=== PATIENT | female | born 1975 | race Caucasian/White ===

== ENCOUNTER → 2016-10-14 | Outpatient (CLI) | payer OTHER ==
--- NOTE | 2016-10-14 12:55 | MM ---
Reason for exam: additional evaluation requested from prior study. Last mammogram was performed 2 years and 3 months ago. Physical Findings: Nurse did not find any significant physical abnormalities on exam. MG Diagnostic Mammo w CAD SALONI Bilateral CC and MLO view(s) were taken. ML, CC with magnification, and ML with magnification view(s) were taken of the right breast. Prior study comparison: July 12, 2014, bilateral MG diagnostic mammo w CAD SALONI. There are scattered fibroglandular densities. Finding: There are indeterminate round, heterogeneous, grouped/clustered calcifications in the upper outer quadrant, middle position of the right breast. There is a chronic nodularity in the left breast. These results were verbally communicated with the patient and result sheet given to the patient on 10/14/16. ASSESSMENT: Suspicious, BI-RAD 4 RECOMMENDATION: Stereotactic core biopsy of the right breast. Called Dr. Zee with mammographic findings and has scheduled an appointment for the patient for 10/28/16 at 3:[address] Galvez. PRELIMINARY REPORT CALLED AND FAXED TO DR. GALVEZ ON 10/14/16 AT 300/TMP.
== END ==
LOC: RADMAMWWP 10:37
PROVIDERS: ATTEND Family Medicine
DX: R92.8 Other abnormal and inconclusive findings on diagnostic imaging of breast (principal)

== ENCOUNTER → 2017-01-23 | Outpatient (CLI) | payer OTHER ==
[2017-01-23 16:24] LABS: Blood Urea Nitrogen 19 mg/dL (7-17); Non-African American GFR(MDRD) 53 (>60 ml/min/1.73 sqM)
--- NOTE | 2017-01-23 18:50 | CT ---
EXAMINATION TYPE: CT abdomen pelvis w con DATE OF EXAM: 01/23/2017 COMPARISON: NONE HISTORY: Lump to mid abdominal area. Hx of abdominal aortic bypass. CT DLP: 2263.2 mGycm Automated exposure control for dose reduction was used. TECHNIQUE: Helical acquisition of images was performed from the lung bases through the pelvis. CONTRAST: Performed with Oral Contrast and with IV Contrast, patient injected with 100 mL of Visipaque 320. FINDINGS: Lung bases are clear. There is no pleural effusion. There is probably a hiatal hernia. There is no evidence of a splenic mass. Liver appears normal. Bile ducts are not dilated. Pancreas ap pears normal. Gallbladder is contracted. There is no adrenal mass. Kidneys show satisfactory contrast opacification. Ureters are not dilated. There is cortical thinning in the lower pole of the right kidney. There is a ventral hernia that cont ains transverse colon. This is above the umbilicus. I do not see evidence of a bowel obstruction. The re is no ascites. There is no retroperitoneal adenopathy. Abdominal aorta is atheromatous. There is a orto iliac bypass graft noted. Bladder distends smoothly. I see no pelvic mass. There is no ascites. Appendix is not seen. There is no sign of appendicitis. Lumbar spine is intact. I see no focal bone d estruction. IMPRESSION: THERE IS AN INCARCERATED VENTRAL HERNIA THAT CONTAINS TRANSVERSE COLON. THE OPENING IS 5 CM. THERE IS NO EVIDENCE OF A BOWEL OBSTRUCTION. MILD SUBCUTANEOUS EDEMA OVER THE LOWER LUMBAR SPINE. CORTICAL TH INNING IN THE LOWER POLE RIGHT KIDNEY CONSISTENT WITH CHRONIC PYELONEPHRITIS. ATHEROSCLEROTIC VASCULA R DISEASE. THERE IS PROBABLY A SMALL HIATAL HERNIA. NO SIGN OF ACUTE ABDOMEN AND PELVIS.
== END | disposition home or self-care (01) ==
LOC: RADCTMAIN 15:48
PROVIDERS: ATTEND Surgery
DX: K43.6 Other and unspecified ventral hernia with obstruction, without gangrene (principal); I70.90 Unspecified atherosclerosis
CPT/HCPCS: 82565; 84520; 74177; 36415; Q9967

== ENCOUNTER → 2017-01-28 | Day surgery (SDC) | payer OTHER ==
[2017-01-28 07:47] VITALS: RESP 18; BMI 42.2
[2017-01-28 08:43] LABS: Prothrombin Time 10.1 sec (9.0-12.0)
[2017-01-28 09:28] VITALS: BP 135/71; PULSE 76; TEMP 76
--- NOTE | 2017-01-28 09:50 | MM ---
Stereotactic Mammotome core biopsy right breast. HISTORY: Right breast microcalcifications The right in question within the right breast were targeted by the undersigned. Procedure was perfor med by the undersigned. Informed consent was obtained and all of the patients questions were answered . The standard sterile technique was utilized and appropriate local anesthesia was obtained with 1% licocaine. Mammotome probe was advanced and multiple core samples were obtained and sent to patholog y for interpretation. Microclip marker was deployed at the site of biopsy. Post procedural mammogra m demonstrates appropriate deployment of radiopaque clip marker. The patient tolerated the procedure well and left the department in stable condition. Pathology results are pending. IMPRESSION: Successful stereotactic core biopsy right breast with pathology results pending.
== END ==
LOC: RADMAMWWP 07:07
PROVIDERS: ATTEND Surgery
DX: N60.31 Fibrosclerosis of right breast (principal); R92.8 Other abnormal and inconclusive findings on diagnostic imaging of breast; N60.01 Solitary cyst of right breast; N60.81 Other benign mammary dysplasias of right breast; N60.21 Fibroadenosis of right breast; N64.89 Other specified disorders of breast; Z88.1 Allergy status to other antibiotic agents
CPT/HCPCS: 88305; 85610; 85730; 19081; A4648; J2001

== ENCOUNTER → 2017-03-05 | Outpatient (CLI) | payer OTHER ==
[2017-03-05 14:01] LABS: Basophils % (A) 0 %; CH 26.6; CHCM 31.9; Eosinophils # (A) 0.2 k/uL (0-0.7); Eosinophils % (A) 2 %; HGB 12.6 gm/dL (11.4-16.0); Luc % (Auto) 2; Lymphocytes # (A) 1.9 k/uL (1.0-4.8); Lymphocytes % (A) 20 %; MCH 27.8 pg (25.0-35.0); MCHC 33.2 g/dL (31.0-37.0); MCV 83.8 fL (80.0-100.0); Mean Platelet Volume 7.1; Monocytes # (A) 0.5 k/uL (0-1.0); Monocytes % (A) 5 %; Neutrophils # (A) 6.8 k/uL (1.3-7.7); Neutrophils % (A) 71 %; RBC 4.54 m/uL (3.80-5.40); RDW 14.6 % (11.5-15.5); WBC 9.7 k/uL (3.8-10.6); WBC (Perox) 10.07
[2017-03-05 14:21] LABS: Blood Urea Nitrogen 13 mg/dL (7-17); Non-African American GFR(MDRD) >60 (>60 ml/min/1.73 sqM); Potassium 4.5 mmol/L (3.5-5.1)
== END | disposition home or self-care (01) ==
LOC: LABPAT 13:06
PROVIDERS: ATTEND Surgery
DX: Z01.812 Encounter for preprocedural laboratory examination (principal)
CPT/HCPCS: 82565; 84132; 84520; 85025

== ENCOUNTER 2017-03-25 08:52 | Day surgery (SDC) | payer OTHER ==
[2017-03-05 10:54] VITALS: BMI 43.9
[~2017-03-25 08:52] MED LIST: DEXAMETHASONE SOD PHOSPHATE 10 MG/ML 1 ML VIAL IV ONE; HEPARIN SODIUM,PORCINE 5,000 UNIT/ML 1 ML VIAL SQ ONE; HYDROmorphone 1 MG/ML 1 ML SYRINGE IVP PRN; LACTATED RINGERS 1,000 ML IV SCH; ONDANSETRON 4 MG/2 ML VIAL IVP ONE; ceFAZolin 2 GM in SODIUM CHLORIDE 0.9% 100 ML IVPB ONE; fentaNYL (PF) 50 MCG/ML 2 ML AMP IV PRN
[2017-03-25 09:41] LABS: Glucose,Whole Blood 228 mg/dL (75-99)
[2017-03-25] MEDS ORDERED: MIDAZOLAM 2 MG/2 ML VIAL IVP ONE (10:00)
[2017-03-25] MEDS ORDERED: LIDOCAINE 1% 20 ML VIAL (10MG/ML) FOR IV START INTRADERMA ONE (10:00)
[2017-03-25] MEDS ORDERED: SCOPOLAMINE 1.5MG/72HR PATCH TRANSDERM ONE (10:00)
[2017-03-25] MEDS ORDERED: INSULIN REGULAR 100 UNIT/ML VIAL SQ ONE (10:13)
--- NOTE | 2017-03-25 10:34 | P.GSHP ---
History of Present Illness H&P Date: 03/25/17 Chief Complaint: Incisional hernia This is a 41-year-old female who's developed an incarcerated incisional hernia related to previous aortobifem surgery. She's developed a tender mass in her mid incision. Past Medical History Past Medical History: Diabetes Mellitus, Deep Vein Thrombosis (DVT), Hyperlipidemia, Hypertension, Thyroid Disorder Additional Past Medical History / Comment(s): DM, type 1, Carpal Tunnel, Frozen shoulder L side. Currently has Bronchitis and is taking Amoxicillin. History of Any Multi-Drug Resistant Organisms: None Reported Past Surgical History: Section, Orthopedic Surgery Additional Past Surgical History / Comment(s): Aortic Abdominal Bypass-12/2015, L Carpal Tunnel, R Breast bx. States she had a clot in her lower ext. post-op from the Aortic-Abd. Bypass surgery. Past Anesthesia/Blood Transfusion Reactions: Family History of Problems w/ Anesthesia Additional Past Anesthesia/Blood Transfusion Reaction / Comment(s): States her brother stopped breathing 4 years ago at the dentist. States not sure what happened. Smoking Status: Former smoker - Past Family History Mother Family Medical History: Cancer Additional Family Medical History / Comment(s): Kidney Brother(s) Family Medical History: Cancer Additional Family Medical History / Comment(s): Esophageal Medications and Allergies Home Medications Medication Instructions Recorded Confirmed Type Aspirin EC [Ecotrin Low Dose] 81 mg PO DAILY 09/24/15 03/16/17 History Insulin NPH Hum/Reg Insulin Hm 63 units SQ BID 09/24/15 03/16/17 History [NovoLIN 70-30 100 UNIT/ML VIAL] Insulin Regular, Human [NovoLIN R] See Protocol SQ ACHS 09/24/15 03/16/17 History Levothyroxine Sodium [Synthroid] 150 mcg PO DAILY 09/24/15 03/16/17 History Lisinopril [Prinivil] 10 mg PO DAILY 09/24/15 03/16/17 History ALPRAZolam [Xanax] 0.25 mg PO DAILY PRN 01/16/17 03/16/17 History Atorvastatin [Lipitor] 40 mg PO DAILY 01/16/17 03/16/17 History Clopidogrel [Plavix] 75 tab PO DAILY 01/16/17 03/16/17 History Hydrochlorothiazide 25 mg PO DAILY 01/16/17 03/16/17 History Metoprolol Succinate [Toprol XL] 25 mg PO HS 01/28/17 03/16/17 History Gabapentin [Neurontin] 100 mg PO TID PRN 03/05/17 03/16/17 History Amoxicillin 875 mg PO Q12HR 03/16/17 03/16/17 History Allergies Allergy/AdvReac Type Severity Reaction Status Date / Time doxycycline Allergy Nausea & Verified 03/25/17 09:16 Vomiting erythromycin base Allergy Nausea & Verified 03/25/17 09:16 Vomiting Surgical - Exam Vital Signs Temp Pulse Resp BP Pulse Ox 97.7 F 92 16 112/61 97 03/25/17 10:00 03/25/17 10:00 03/25/17 10:00 03/25/17 10:00 03/25/17 10:00 - General well developed, no distress - Eyes PERRL - ENT normal pinna - Neck no masses - Respiratory normal expansion - Cardiovascular Rhythm: regular - Abdomen Abdomen: soft, non tender Hernia: incisional (Incarcerated incisional hernia approximately 5 cm diameter) Results - Labs Abnormal Lab Results - Last 24 Hours (Table) 03/25/17 Range/Units 09:37 POC Glucose (mg/dL) 228 H (75-99) mg/dL Assessment and Plan Plan: Incarcerated incisional hernia. We'll perform laparoscopic robotic assistance repair. Patient is aware the risk of possible significant adhesions and conversion to open procedure.
[2017-03-25] MEDS ORDERED: BUPIVACAINE-EPI 0.5%-1:200,000 10 ML VIAL SQ ONE (10:45)
[2017-03-25] MEDS ORDERED: MIDAZOLAM 2 MG/2 ML VIAL ONE (10:48)
[2017-03-25] MEDS ORDERED: GLYCOPYRROLATE 0.2 MG/ML 2 ML VIAL ONE (10:48)
[2017-03-25] MEDS ORDERED: KETOROLAC 30 MG/ML 1 ML VIAL ONE (10:48)
[2017-03-25] MEDS ORDERED: PROPOFOL 10 MG/ML 20 ML VIAL IV ONE (10:48)
[2017-03-25] MEDS ORDERED: ROCURONIUM BROMIDE 10 MG/ML 10 ML VIAL IV ONE (10:48)
[2017-03-25] MEDS ORDERED: SUCCINYLCHOLINE CHLORIDE 100 MG/5 ML SYR IV ONE (10:48)
[2017-03-25] MEDS ORDERED: HYDROmorphone (PF) 1 MG/ML ONE (10:48)
[2017-03-25] MEDS ORDERED: fentaNYL (PF) 50 MCG/ML 2 ML AMP ONE (10:48)
[2017-03-25] MEDS ORDERED: NEOSTIGMINE 1 MG/ML 10 ML VIAL ONE (10:48)
[2017-03-25] MEDS ORDERED: LIDOCAINE 1% INJ 10MG/ML (20 ML MDV) ONE (10:48)
[2017-03-25] MEDS ORDERED: ONDANSETRON 4 MG/2 ML VIAL IVP PRN (11:57)
[2017-03-25] MEDS ORDERED: NALOXONE 0.4 MG/ML 1 ML VIAL IV PRN (11:57)
[2017-03-25] MEDS ORDERED: HYDROmorphone 1 MG/ML 1 ML SYRINGE IVP PRN (11:57)
[2017-03-25] MEDS ORDERED: LACTATED RINGERS 1,000 ML IV ONE ×2 (12:02→15:30)
[2017-03-25 12:34] LABS: Glucose,Whole Blood 217 mg/dL (75-99)
--- NOTE | 2017-03-25 14:22 | P.OP ---
Date of Procedure: 03/25/17 Preoperative Diagnosis: Incisional incarcerated hernia Postoperative Diagnosis: Incarcerated incisional hernia Adhesions Procedure(s) Performed: Diagnostic laparoscopy Open repair of incarcerated incisional hernia with mesh Anesthesia: NURIA Surgeon: Ryder Galvez Estimated Blood Loss (ml): 20 Pathology: other (Hernia sac) Condition: stable Disposition: PACU Description of Procedure: The patient's placed the operative table in supine position. She received general anesthesia. Her abdomen was prepped and draped usual sterile fashion. The pelvic cavity was entered in the left upper quadrant. Using a 5 mm optical trocar under direct visualization panel cavity was entered and then the abdomen was insufflated. After adequate insufflation the laparoscope was placed back the pleural cavity. There were extensive adhesions located along the midline. There is multiple loops of bowel stuck up against the midline. It was decided to convert the procedure to proceed this point. The trochars withdrawn. The skin was incised in midline. And then the subcutaneous tissue divided using left cautery. The hernia sac was found. The hernia sac wasn't opened. The incarcerated bowel was placed back peritoneal cavity. The hernia sac was then excised using left cautery. The fascial defect was closed using. 0 Ethibond suture. Next a 10 x 12" Prolene mesh was cut to appropriate size and this was secured to the fascia using the secure strand tacker. A MORRO drains placed over top of the mesh and brought out through separate stab incision. Elvia's fascia closed with 0 Vicryl. Skin was closed with kris. The patient was then sent to recovery room in stable condition.
[2017-03-25] MEDS ORDERED: SODIUM CHLORIDE 0.9% 500 ML IV ONE (14:49)
[2017-03-25] MEDS: KETOROLAC 30 MG/ML 1 ML VIAL IVP SCH ×2 (15:29→18:32)
[2017-03-25 15:55] LABS: Glucose,Whole Blood 227 mg/dL (75-99)
[2017-03-25 16:01] LABS: CH 27.1; CHCM 32.2; HCT 33.6 % (34.0-46.0); HDW 2.58; HGB 10.7 gm/dL (11.4-16.0); MCH 26.8 pg (25.0-35.0); MCHC 31.8 g/dL (31.0-37.0); MCV 84.5 fL (80.0-100.0); Mean Platelet Volume 7.3; RBC 3.98 m/uL (3.80-5.40); RDW 15.6 % (11.5-15.5); WBC 13.5 k/uL (3.8-10.6)
[2017-03-25] MEDS ORDERED: ALPRAZolam 0.25 MG TAB PO PRN (16:20)
[2017-03-25] MEDS ORDERED: GABAPENTIN 100 MG CAP PO PRN (16:20)
[2017-03-25] MEDS: LACTATED RINGERS 1,000 ML IV ONE (16:34)
[2017-03-25] MEDS: INSULIN LISPRO (humaLOG) 300 UNIT/3 ML VIAL SQ SCH ×2 (17:44→21:51)
[2017-03-25 17:52] LABS: Glucose,Whole Blood 260 mg/dL (75-99)
[2017-03-25 21:48] LABS: Glucose,Whole Blood 202 mg/dL (75-99)
[2017-03-25] MEDS: METOPROLOL SUCCINATE (ER) 25 MG TAB.ER.24H PO SCH (21:49)
[2017-03-25] MEDS: DOCUSATE 100 MG CAP PO SCH (21:55)
[2017-03-25] MEDS: HYDROcodone/APAP 5-325MG 1 EACH TAB PO PRN (22:03)
[2017-03-26] MEDS: KETOROLAC 30 MG/ML 1 ML VIAL IVP SCH ×4 (00:20→17:49)
[2017-03-26] MEDS: LACTATED RINGERS 1,000 ML IV ONE (00:33)
[2017-03-26] MEDS: LEVOTHYROXINE 75 MCG TAB PO SCH (06:34)
[2017-03-26 07:16] LABS: Basophils # (A) 0.1 k/uL (0-0.2); Basophils % (A) 1 %; CHCM 31.9; Eosinophils # (A) 0.2 k/uL (0-0.7); Eosinophils % (A) 2 %; HCT 36.3 % (34.0-46.0); HDW 2.54; HGB 11.6 gm/dL (11.4-16.0); Luc # (Auto) 0.09; Luc % (Auto) 1; Lymphocytes # (A) 1.6 k/uL (1.0-4.8); Lymphocytes % (A) 17 %; MCH 27.2 pg (25.0-35.0); MCV 85.2 fL (80.0-100.0); Mean Platelet Volume 7.4; Monocytes # (A) 0.5 k/uL (0-1.0); Monocytes % (A) 5 %; Neutrophils % (A) 75 %; RBC 4.26 m/uL (3.80-5.40); RDW 15.3 % (11.5-15.5); WBC 9.4 k/uL (3.8-10.6); WBC (Perox) 10.63
[2017-03-26 07:32] LABS: ALT 29 U/L (9-52); AST 20 U/L (14-36); Alkaline Phosphatase 123 U/L (38-126); Anion Gap 8 mmol/L; Blood Urea Nitrogen 17 mg/dL (7-17); Calcium 8.4 mg/dL (8.4-10.2); Carbon Dioxide 25 mmol/L (22-30); Chloride 101 mmol/L (98-107); Glucose 310 mg/dL (74-99); Non-African American GFR(MDRD) >60 (>60 ml/min/1.73 sqM); Sodium 134 mmol/L (137-145); Total Bilirubin 0.9 mg/dL (0.2-1.3); Total Protein 5.8 g/dL (6.3-8.2)
[2017-03-26 07:47] LABS: Glucose,Whole Blood 306 mg/dL (75-99)
[2017-03-26] MEDS: INSULIN LISPRO (humaLOG) 300 UNIT/3 ML VIAL SQ SCH ×4 (08:27→21:10)
[2017-03-26] MEDS: DOCUSATE 100 MG CAP PO SCH (08:29)
[2017-03-26] MEDS: ENOXAPARIN 40 MG/0.4 ML SYRINGE SQ SCH ×2 (08:29→09:35)
[2017-03-26] MEDS: ATORVASTATIN 40 MG TAB PO SCH (08:29)
[2017-03-26] MEDS: ASPIRIN 81 MG PO SCH (09:26)
[2017-03-26] MEDS: INSULIN NPH/REG INSULIN 70/30 300 UNIT/3 ML VIAL SQ SCH ×2 (09:26→17:25)
--- NOTE | 2017-03-26 11:00 | P.CONS ---
History of Present Illness - Reason for Consult Consult date: 03/26/17 Medical management Requesting physician: Ryder Galvez - Chief Complaint Status post repair of incarcerated incisional hernia - History of Present Illness This is a 41-year-old female, patient of Dr. Ozuna. She has a known past medical history of diabetes mellitus, DVT, hypothyroidism, hyperlipidemia, aortic abdominal bypass surgery with stents also in the left leg. She has history of peripheral vascular disease. We have been consulted for medical management. Patient underwent repair of incarcerated incisional hernia with Dr. Galvez. She tolerated surgery well with no complications. Estimated blood loss was 20 mL. Blood sugars this morning have been in the high 200s to 300s. She did receive a dose of dexamethasone. And her NovoLog 7030 was on hold. NovoLog 7030 was restarted this morning continue sliding scale. We'll continue to monitor. They have started patient on diet. And surgeries planning to keep her one more day. She is passing gas no bowel movement yet. Denies any chest pain or shortness of breath. Denies any nausea or vomiting. Reports her pain is controlled. Denies any fevers chills or sweats. Review of Systems Please refer to HPI otherwise unremarkable Past Medical History Past Medical History: Diabetes Mellitus, Deep Vein Thrombosis (DVT), Hyperlipidemia, Hypertension, Thyroid Disorder Additional Past Medical History / Comment(s): DM, type 1, Carpal Tunnel, Frozen shoulder L side. Currently has Bronchitis and is taking Amoxicillin. History of Any Multi-Drug Resistant Organisms: None Reported Past Surgical History: Section, Orthopedic Surgery Additional Past Surgical History / Comment(s): Aortic Abdominal Bypass-12/2015, L Carpal Tunnel, R Breast bx. States she had a clot in her lower ext. post-op from the Aortic-Abd. Bypass surgery. Past Anesthesia/Blood Transfusion Reactions: Family History of Problems w/ Anesthesia Additional Past Anesthesia/Blood Transfusion Reaction / Comm: States her brother stopped breathing 4 years ago at the dentist. States not sure what happened. Past Psychological History: No Psychological Hx Reported Smoking Status: Never smoker Past Alcohol Use History: None Reported Additional Past Alcohol Use History / Comment(s): Quit smoking in 2014. Started when a teenager 1 PPD. Past Drug Use History: None Reported - Past Family History Mother Family Medical History: Cancer Additional Family Medical History / Comment(s): Kidney Brother(s) Family Medical History: Cancer Additional Family Medical History / Comment(s): Esophageal Medications and Allergies Home Medications Medication Instructions Recorded Confirmed Type Aspirin EC [Ecotrin Low Dose] 81 mg PO DAILY 09/24/15 03/25/17 History Insulin NPH Hum/Reg Insulin Hm 63 units SQ BID 09/24/15 03/25/17 History [NovoLIN 70-30 100 UNIT/ML VIAL] Insulin Regular, Human [NovoLIN R] See Protocol SQ ACHS 09/24/15 03/25/17 History Levothyroxine Sodium [Synthroid] 150 mcg PO DAILY 09/24/15 03/25/17 History Lisinopril [Prinivil] 10 mg PO DAILY 09/24/15 03/25/17 History ALPRAZolam [Xanax] 0.25 mg PO DAILY PRN 01/16/17 03/25/17 History Atorvastatin [Lipitor] 40 mg PO DAILY 01/16/17 03/25/17 History Clopidogrel [Plavix] 75 tab PO DAILY 01/16/17 03/25/17 History Hydrochlorothiazide 25 mg PO DAILY 01/16/17 03/25/17 History Metoprolol Succinate [Toprol XL] 25 mg PO HS 01/28/17 03/25/17 History Gabapentin [Neurontin] 100 mg PO TID PRN 03/05/17 03/25/17 History Allergies Allergy/AdvReac Type Severity Reaction Status Date / Time doxycycline Allergy Nausea & Verified 03/25/17 09:16 Vomiting erythromycin base Allergy Nausea & Verified 03/25/17 09:16 Vomiting Physical Exam Vitals: Vital Signs Temp Pulse Pulse Pulse Resp BP BP 03/26/17 07:40 03/26/17 07:00 97.1 F L 86 03/26/17 04:06 97.1 F L 76 03/26/17 00:18 97.3 F L 77 03/25/17 21:45 97.5 F L 83 03/25/17 18:45 68 03/25/17 17:48 73 03/25/17 17:30 03/25/17 16:54 76 03/25/17 16:15 72 03/25/17 15:55 76 03/25/17 15:35 74 03/25/17 15:15 74 03/25/17 14:45 73 16 03/25/17 14:30 76 18 03/25/17 14:15 76 16 03/25/17 14:00 76 16 03/25/17 13:45 97.7 F 76 18 03/25/17 12:56 90 16 159/70 03/25/17 12:45 78 16 112/56 03/25/17 12:29 90 16 114/56 03/25/17 12:15 93 16 114/45 03/25/17 12:12 97.4 F L 89 14 113/59 BP Pulse Ox 03/26/17 07:40 95 03/26/17 07:00 96 03/26/17 04:06 105/52 94 L 03/26/17 00:18 100/52 100 03/25/17 21:45 126/57 98 03/25/17 18:45 108/55 100 03/25/17 17:48 91/48 98 03/25/17 17:30 97 03/25/17 16:54 101/47 98 03/25/17 16:15 105/59 98 03/25/17 15:55 104/53 98 03/25/17 15:35 94/47 98 03/25/17 15:15 78/38 98 03/25/17 14:45 81/45 98 03/25/17 14:30 95/47 98 03/25/17 14:15 94/50 98 03/25/17 14:00 97/52 96 03/25/17 13:45 89/46 96 03/25/17 12:56 97 03/25/17 12:45 97 03/25/17 12:29 97 03/25/17 12:15 95 03/25/17 12:12 95 Intake and Output 03/25/17 03/26/17 03/26/17 22:59 06:59 14:59 Output Total 65 1100 Balance -65 -1100 Output: Drainage 65 50 Right Abdomen 65 50 Urine 1050 Other: Voiding Method Toilet # Voids 1 Weight 116.12 kg Head normocephalic Neck supple Lungs clear to auscultation bilaterally no wheezing or crackles Heart regular rate and rhythm S1-S2, no rub or gallop Abdomen is soft and abdominal binder in place MORRO tube in place with serous sanguinous fluid Extremities no edema Neuro alert and orientated to 3 Results CBC & Chem 7: 03/26/17 06:57 03/26/17 06:57 Labs: Abnormal Lab Results - Last 24 Hours (Table) 03/25/17 03/25/17 03/25/17 Range/Units 12:28 15:45 15:53 WBC 13.5 H (3.8-10.6) k/uL Hgb 10.7 L (11.4-16.0) gm/dL Hct 33.6 L (34.0-46.0) % RDW 15.6 H (11.5-15.5) % Sodium (137-145) mmol/L Glucose (74-99) mg/dL POC Glucose (mg/dL) 217 H 227 H (75-99) mg/dL Total Protein (6.3-8.2) g/dL Albumin (3.5-5.0) g/dL 03/25/17 03/25/17 03/26/17 Range/Units 17:43 21:47 06:57 WBC (3.8-10.6) k/uL Hgb (11.4-16.0) gm/dL Hct (34.0-46.0) % RDW (11.5-15.5) % Sodium 134 L (137-145) mmol/L Glucose 310 H (74-99) mg/dL POC Glucose (mg/dL) 260 H 202 H (75-99) mg/dL Total Protein 5.8 L (6.3-8.2) g/dL Albumin 3.1 L (3.5-5.0) g/dL 03/26/17 Range/Units 07:46 WBC (3.8-10.6) k/uL Hgb (11.4-16.0) gm/dL Hct (34.0-46.0) % RDW (11.5-15.5) % Sodium (137-145) mmol/L Glucose (74-99) mg/dL POC Glucose (mg/dL) 306 H (75-99) mg/dL Total Protein (6.3-8.2) g/dL Albumin (3.5-5.0) g/dL Assessment and Plan Plan: 1. Incarcerated incisional hernia with adhesions status post open repair of incarcerated incisional hernia with mesh. Patient is tolerating diet. Passing gas. Continue with current pain medication 2. Known history of peripheral vascular disease with stents in the left leg. Resume patient's aspirin and Plavix. 3. History of an AV aortic abdominal bypass surgery in December 2015 4. Diabetes mellitus type 1 with elevated blood sugars in the 300s. Resume her NovoLog 7030. Continue sliding scale coverage. Continue to monitor closely 5. History of hypothyroidism: Continue Synthroid 6. Essential hypertension: Blood pressure is on the lower side. The hydrochlorothiazide was held. Lisinopril and metoprolol have parameters placed around them. Continue to monitor. Last blood pressure was 105/52. Patient denies any dizziness 7. Hyperlipidemia continue Lipitor DVT prophylaxis Lovenox Thank you for this consultation. We will continue to follow along with you Time with Patient: Greater than 30 (Greater than 50% of the total time spent in counseling and coordination of care.I performed an examination of the patient and discussed their management with the physician Ice Scraper. I have reviewed the Physician Ice Scraper's notes and agree with the documented findings and plan of care)
[2017-03-26] MEDS: LISINOPRIL 10 MG TAB PO SCH (11:18)
--- NOTE | 2017-03-26 11:32 | P.PN ---
<Carrie Conti M - Last Filed: 03/26/17 11:34> Subjective 41-year-old female being seen on rounds this morning patient states she has been up ambulating in the hallway. Patient additionally reports that she's tolerating her diet. Reports no nausea no vomiting. Patient states that she is passing gas no stool Patient is postop open repair incarcerated incisional hernia done on March 25. Postop patient did develop systolic hypotension needed to receive 2 L of fluid bolus postoperatively. This morning the blood pressure has improved 124/40. Additionally medicine is managing patient's diabetes blood sugars were noted to be elevated. Patient's been restarted on her home dose of NovoLog 7030. Labs were reviewed potassium 5 creatinine 0.9 otherwise unremarkable the white count 9.4 hemoglobin 11.6 Objective - Vital Signs Vital signs: Vital Signs Temp 97.1 F L 03/26/17 07:00 Pulse 86 03/26/17 07:00 Resp 20 03/26/17 07:00 BP 114/45 03/26/17 11:00 Pulse Ox 95 03/26/17 07:40 Intake & Output 03/25/17 03/26/17 03/26/17 18:59 06:59 18:59 Intake Total 1500 Output Total 115 1140 200 Balance 1385 -1140 -200 Weight 116.12 kg Intake: IV 1500 Output: Drainage 65 90 Right Abdomen 65 90 Urine 1050 200 Estimated Blood Loss 50 Other: Voiding Method Toilet # Voids 1 - Exam Physical exam 41-year-old female resting in bed pleasant cooperative oriented appears in no acute distress Lungs adequate air movement bilaterally no wheezing rail rhonchi on room air sats are 95% no cough Heart S1-S2 audible regular denying chest pain Abdomen surgical dressing dry MORRO drain in place left lower quadrant serous sanguinous drainage abdominal binder in place bowel tones present appropriate surgical tenderness not distended states urinating no difficulty tolerating diet no nausea no vomiting Extremities no edema - Labs CBC & Chem 7: 03/26/17 06:57 03/26/17 06:57 Labs: Abnormal Lab Results - Last 24 Hours (Table) 03/25/17 03/25/17 03/25/17 Range/Units 12:28 15:45 15:53 WBC 13.5 H (3.8-10.6) k/uL Hgb 10.7 L (11.4-16.0) gm/dL Hct 33.6 L (34.0-46.0) % RDW 15.6 H (11.5-15.5) % Sodium (137-145) mmol/L Glucose (74-99) mg/dL POC Glucose (mg/dL) 217 H 227 H (75-99) mg/dL Total Protein (6.3-8.2) g/dL Albumin (3.5-5.0) g/dL 03/25/17 03/25/17 03/26/17 Range/Units 17:43 21:47 06:57 WBC (3.8-10.6) k/uL Hgb (11.4-16.0) gm/dL Hct (34.0-46.0) % RDW (11.5-15.5) % Sodium 134 L (137-145) mmol/L Glucose 310 H (74-99) mg/dL POC Glucose (mg/dL) 260 H 202 H (75-99) mg/dL Total Protein 5.8 L (6.3-8.2) g/dL Albumin 3.1 L (3.5-5.0) g/dL 03/26/17 Range/Units 07:46 WBC (3.8-10.6) k/uL Hgb (11.4-16.0) gm/dL Hct (34.0-46.0) % RDW (11.5-15.5) % Sodium (137-145) mmol/L Glucose (74-99) mg/dL POC Glucose (mg/dL) 306 H (75-99) mg/dL Total Protein (6.3-8.2) g/dL Albumin (3.5-5.0) g/dL Assessment and Plan Plan: Impression Status post March 25 open repair incarcerated hernia with mesh Incarcerated incisional hernia with adhesions Known history of peripheral vascular disease with peripheral stenting left leg Type 1 diabetes hemoglobin A1c pending Postop hypotension resolving Essential hypertension Hypothyroid on supplements History of AV aortic abdominal bypass December 2015 Hyperlipidemia Hyperglycemic episodes expected postop due to poor caloric intake Plan Continue postop surgical care Internal medicine to manage and address blood sugars Resume home meds as appropriate Increase activity Repeat labs in the morning Follow up on hemoglobin A1c Prepped for probable discharge in the next 24 hours DVT and GI prophylaxis The above impression and plan of care have been discussed and directed by signing physician. Carrie Conti nurse practitioner acting as scribe for signing physician. <Chuy Menon - Last Filed: 03/26/17 17:56> Objective - Vital Signs Vital signs: Vital Signs Temp 97.0 F L 03/26/17 15:50 Pulse 75 03/26/17 15:50 Resp 12 03/26/17 15:50 BP 111/47 03/26/17 15:50 Pulse Ox 94 L 03/26/17 15:50 Intake & Output 03/25/17 03/26/17 03/26/17 18:59 06:59 18:59 Intake Total 1500 120 Output Total 115 1140 845 Balance 1385 -1140 -725 Weight 116.12 kg Intake: IV 1500 Oral 120 Output: Drainage 65 90 45 Right Abdomen 65 90 45 Urine 1050 800 Estimated Blood Loss 50 Other: Voiding Method Toilet # Voids 1 - Labs CBC & Chem 7: 03/26/17 06:57 03/26/17 06:57 Labs: Abnormal Lab Results - Last 24 Hours (Table) 03/25/17 03/26/17 03/26/17 Range/Units 21:47 06:57 06:57 Sodium 134 L (137-145) mmol/L Glucose 310 H (74-99) mg/dL POC Glucose (mg/dL) 202 H (75-99) mg/dL Hemoglobin A1c 7.6 H (4.2-6.1) % Total Protein 5.8 L (6.3-8.2) g/dL Albumin 3.1 L (3.5-5.0) g/dL 03/26/17 03/26/17 03/26/17 Range/Units 07:46 12:39 17:12 Sodium (137-145) mmol/L Glucose (74-99) mg/dL POC Glucose (mg/dL) 306 H 259 H 188 H (75-99) mg/dL Hemoglobin A1c (4.2-6.1) % Total Protein (6.3-8.2) g/dL Albumin (3.5-5.0) g/dL Assessment and Plan Plan: As above. Patient doing well today. Blood pressure improving. She is anxious to go home. Will plan discharge in the morning as long as patient is doing well otherwise.
[2017-03-26 12:42] LABS: Hemoglobin A1C 7.6 % (4.2-6.1)
[2017-03-26 12:43] LABS: Glucose,Whole Blood 259 mg/dL (75-99)
[2017-03-26] MEDS: CLOPIDOGREL 75 MG TAB PO SCH (13:26)
[2017-03-26 17:14] LABS: Glucose,Whole Blood 188 mg/dL (75-99)
[2017-03-26 20:57] LABS: Glucose,Whole Blood 152 mg/dL (75-99)
[2017-03-26] MEDS: METOPROLOL SUCCINATE (ER) 25 MG TAB.ER.24H PO SCH (21:13)
[2017-03-27] MEDS: DOCUSATE 100 MG CAP PO SCH ×2 (00:30→08:57)
[2017-03-27] MEDS: KETOROLAC 30 MG/ML 1 ML VIAL IVP SCH ×2 (01:51→05:57)
[2017-03-27] MEDS: LEVOTHYROXINE 75 MCG TAB PO SCH (06:17)
[2017-03-27 07:34] LABS: Glucose,Whole Blood 198 mg/dL (75-99)
[2017-03-27 07:48] LABS: Basophils % (A) 0 %; CH 27.3; CHCM 31.9; Eosinophils # (A) 0.1 k/uL (0-0.7); Eosinophils % (A) 2 %; HCT 33.7 % (34.0-46.0); HDW 2.42; HGB 10.3 gm/dL (11.4-16.0); Luc % (Auto) 1; Lymphocytes # (A) 1.4 k/uL (1.0-4.8); Lymphocytes % (A) 18 %; MCH 26.3 pg (25.0-35.0); MCHC 30.5 g/dL (31.0-37.0); Mean Platelet Volume 7.5; Monocytes # (A) 0.6 k/uL (0-1.0); Monocytes % (A) 7 %; Neutrophils # (A) 5.9 k/uL (1.3-7.7); Neutrophils % (A) 72 %; RBC 3.92 m/uL (3.80-5.40); RDW 15.6 % (11.5-15.5); WBC 8.1 k/uL (3.8-10.6); WBC (Perox) 8.63
[2017-03-27 08:10] LABS: ALT 27 U/L (9-52); AST 16 U/L (14-36); Alkaline Phosphatase 104 U/L (38-126); Anion Gap 8 mmol/L; Blood Urea Nitrogen 12 mg/dL (7-17); Calcium 8.7 mg/dL (8.4-10.2); Carbon Dioxide 25 mmol/L (22-30); Chloride 107 mmol/L (98-107); Glucose 199 mg/dL (74-99); Non-African American GFR(MDRD) >60 (>60 ml/min/1.73 sqM); Potassium 4.5 mmol/L (3.5-5.1); Sodium 140 mmol/L (137-145); Total Bilirubin 0.4 mg/dL (0.2-1.3); Total Protein 5.8 g/dL (6.3-8.2)
[2017-03-27] MEDS: INSULIN NPH/REG INSULIN 70/30 300 UNIT/3 ML VIAL SQ SCH (08:32)
[2017-03-27] MEDS: INSULIN LISPRO (humaLOG) 300 UNIT/3 ML VIAL SQ SCH (08:34)
[2017-03-27] MEDS: ENOXAPARIN 40 MG/0.4 ML SYRINGE SQ SCH (08:36)
[2017-03-27] MEDS: ASPIRIN 81 MG PO SCH (08:56)
[2017-03-27] MEDS: LISINOPRIL 10 MG TAB PO SCH (08:57)
[2017-03-27] MEDS: CLOPIDOGREL 75 MG TAB PO SCH (08:57)
[2017-03-27] MEDS: ATORVASTATIN 40 MG TAB PO SCH (09:20)
--- NOTE | 2017-03-27 11:33 | P.DS ---
Providers Expected date of discharge: 03/27/17 Attending physician: Ryder Galvez Consults: 03/25/17 13:13 Consult Physician Routine Consulting Provider: Nicholas Moore Consult Reason/Comments: MEDICAL MANAGEMENT Do you want consulting provider notified?: Yes Primary care physician: Camryn Bryce Hospital Course: 41-year-old female presented to undergo an elective repair of an incisional incarcerated hernia. On March 25 patient underwent an open repair of an incarcerated incisional hernia with mesh with a diagnostic laparoscopic. Sheldon-Soliz drain was placed to the right lower quadrant. Postop patient did develop systolic hypotension did need to receive 2 L of fluid bolus postoperatively. Patient's blood pressure stabilized. Patient additionally was seen by medicine for medical management patient's diabetes and hypertension. On the day of discharge the hemoglobin 10.3 white count 8.1 electrolytes within normal limits blood sugars 190-150 AST and ALT were not elevated pain medication was effective for pain control MORRO drain no redness at the site serosanguineous drainage patient was felt to be hemodynamically stable and appropriate to proceed with a discharge to home Impression Status post March 25 open repair incarcerated hernia with mesh Incarcerated incisional hernia with adhesions Known history of peripheral vascular disease with peripheral stenting left leg Type 1 diabetes hemoglobin A1c pending Postop hypotension resolved Essential hypertension Hypothyroid on supplements History of AV aortic abdominal bypass December 2015 Hyperlipidemia Hyperglycemic episodes expected postop due to poor caloric intake improved resolved The above impression and plan of care have been discussed and directed by signing physician. Carrie Conti nurse practitioner acting as scribe for signing physician. Plan - Discharge Summary New Discharge Prescriptions: New HYDROcodone/APAP 5-325MG [Irene 5-325] 2 each PO Q6HR PRN #30 tab PRN Reason: Moderate To Severe Pain Continue Lisinopril [Prinivil] 10 mg PO DAILY Levothyroxine Sodium [Synthroid] 150 mcg PO DAILY Aspirin EC [Ecotrin Low Dose] 81 mg PO DAILY Insulin Regular, Human [NovoLIN R] See Protocol SQ ACHS Insulin NPH Hum/Reg Insulin Hm [NovoLIN 70-30 100 UNIT/ML VIAL] 63 units SQ BID ALPRAZolam [Xanax] 0.25 mg PO DAILY PRN PRN Reason: Anxiety Atorvastatin [Lipitor] 40 mg PO DAILY Clopidogrel [Plavix] 75 tab PO DAILY Hydrochlorothiazide 25 mg PO DAILY Metoprolol Succinate [Toprol XL] 25 mg PO HS Gabapentin [Neurontin] 100 mg PO TID PRN PRN Reason: Mild Discomfort Discharge Medication List Aspirin EC [Ecotrin Low Dose] 81 mg PO DAILY 09/24/15 [History] Insulin NPH Hum/Reg Insulin Hm [NovoLIN 70-30 100 UNIT/ML VIAL] 63 units SQ BID 09/24/15 [History] Insulin Regular, Human [NovoLIN R] See Protocol SQ ACHS 09/24/15 [History] Levothyroxine Sodium [Synthroid] 150 mcg PO DAILY 09/24/15 [History] Lisinopril [Prinivil] 10 mg PO DAILY 09/24/15 [History] ALPRAZolam [Xanax] 0.25 mg PO DAILY PRN 01/16/17 [History] Atorvastatin [Lipitor] 40 mg PO DAILY 01/16/17 [History] Clopidogrel [Plavix] 75 tab PO DAILY 01/16/17 [History] Hydrochlorothiazide 25 mg PO DAILY 01/16/17 [History] Metoprolol Succinate [Toprol XL] 25 mg PO HS 01/28/17 [History] Gabapentin [Neurontin] 100 mg PO TID PRN 03/05/17 [History] HYDROcodone/APAP 5-325MG [Irene 5-325] 2 each PO Q6HR PRN #30 tab 03/27/17 [Rx] Follow up Appointment(s)/Referral(s): Nicholas Moore MD [STAFF PHYSICIAN] - 1 Week Ryder Galvez MD [STAFF PHYSICIAN] - 03/31/17 Activity/Diet/Wound Care/Special Instructions: Instructions provided on Sheldon-Soliz drain care No lifting anything heavier than a milk carton May shower No tub bath Notify the attending if any fever chills abdominal pain Wear abdominal binder when up with activity Discharge Disposition: HOME SELF-CARE
--- NOTE | 2017-03-27 11:34 | P.PN ---
Subjective This is a 41-year-old female, patient of Dr. Ozuna. She has a known past medical history of diabetes mellitus, DVT, hypothyroidism, hyperlipidemia, aortic abdominal bypass surgery with stents also in the left leg. She has history of peripheral vascular disease. We have been consulted for medical management. Patient underwent repair of incarcerated incisional hernia with Dr. Galvez. She tolerated surgery well with no complications. Estimated blood loss was 20 mL. Blood sugars this morning have been in the high 200s to 300s. She did receive a dose of dexamethasone. And her NovoLog 7030 was on hold. NovoLog 7030 was restarted this morning continue sliding scale. We'll continue to monitor. They have started patient on diet. And surgeries planning to keep her one more day. She is passing gas no bowel movement yet. Denies any chest pain or shortness of breath. Denies any nausea or vomiting. Reports her pain is controlled. Denies any fevers chills or sweats. 03/27/2017 patient's blood sugars and blood pressures have shown improvement. Blood pressure medications were held yesterday. Patient had no symptoms of dizziness. Blood sugars were also elevated her home insulin was restarted and blood sugars have shown improvement. Patient denies any bowel movement but she is passing gas and tolerating diet. She is scheduled for possible discharge today Objective - Vital Signs Vital signs: Vital Signs Temp 98.4 F 03/27/17 07:00 Pulse 92 03/27/17 07:00 Resp 24 03/27/17 07:00 BP 119/42 03/27/17 07:00 Pulse Ox 96 03/27/17 09:18 Intake & Output 03/26/17 03/27/17 03/27/17 18:59 06:59 18:59 Intake Total 120 100 Output Total 1665 50 Balance -1545 50 Intake: Oral 120 100 Output: Drainage 65 50 Right Abdomen 65 50 Urine 1600 Other: Voiding Method Toilet # Voids 1 1 - Exam Head normocephalic Neck supple Lungs clear to auscultation bilaterally no wheezing or crackles Heart regular rate and rhythm S1-S2, no rub or gallop Abdomen is soft nontender nondistended positive bowel sounds no hepatosplenomegaly Extremities no edema Neuro alert and orientated to 3 - Labs CBC & Chem 7: 03/27/17 07:29 03/27/17 07:29 Labs: Abnormal Lab Results - Last 24 Hours (Table) 03/26/17 03/26/17 03/26/17 Range/Units 06:57 12:39 17:12 Hgb (11.4-16.0) gm/dL Hct (34.0-46.0) % MCHC (31.0-37.0) g/dL RDW (11.5-15.5) % Glucose (74-99) mg/dL POC Glucose (mg/dL) 259 H 188 H (75-99) mg/dL Hemoglobin A1c 7.6 H (4.2-6.1) % Total Protein (6.3-8.2) g/dL Albumin (3.5-5.0) g/dL 03/26/17 03/27/17 03/27/17 Range/Units 20:54 07:23 07:29 Hgb 10.3 L (11.4-16.0) gm/dL Hct 33.7 L (34.0-46.0) % MCHC 30.5 L (31.0-37.0) g/dL RDW 15.6 H (11.5-15.5) % Glucose (74-99) mg/dL POC Glucose (mg/dL) 152 H 198 H (75-99) mg/dL Hemoglobin A1c (4.2-6.1) % Total Protein (6.3-8.2) g/dL Albumin (3.5-5.0) g/dL 03/27/17 Range/Units 07:29 Hgb (11.4-16.0) gm/dL Hct (34.0-46.0) % MCHC (31.0-37.0) g/dL RDW (11.5-15.5) % Glucose 199 H (74-99) mg/dL POC Glucose (mg/dL) (75-99) mg/dL Hemoglobin A1c (4.2-6.1) % Total Protein 5.8 L (6.3-8.2) g/dL Albumin 3.0 L (3.5-5.0) g/dL Assessment and Plan Plan: 1. Incarcerated incisional hernia with adhesions status post open repair of incarcerated incisional hernia with mesh. Patient is tolerating diet. Passing gas. Continue with current pain medication 2. Known history of peripheral vascular disease with stents in the left leg. Resume patient's aspirin and Plavix. 3. History of an AV aortic abdominal bypass surgery in December 2015 4. Diabetes mellitus type 1 with elevated blood sugars in the 300s. Resume her NovoLog 7030. Continue sliding scale coverage. Continue to monitor closely. Patient's blood sugars have shown improvement with restarting home medications. A1c 7.6 5. History of hypothyroidism: Continue Synthroid 6. Essential hypertension: Blood pressures have shown improvement. She can resume her home blood pressure medications at discharge. 7. Hyperlipidemia continue Lipitor DVT prophylaxis Lovenox Patient is medically stable for discharge. We'll have her follow-up with her PCP in 1 week I performed an examination of the patient and discussed their management with the physician Python Architect. I have reviewed the Physician Python Architect's notes and agree with the documented findings and plan of care
[2017-03-27 11:54] VITALS: BP 141/65; PULSE 86; RESP 22; TEMP 97.4
[2017-03-27] MEDS: HYDROcodone/APAP 5-325MG 1 EACH TAB PO PRN (11:57)
== END 2017-03-27 12:06 | disposition home or self-care (01) ==
LOC: OR 08:52 → 6PED 12:11 → OR 03-27 12:06
PROVIDERS: ATTEND Surgery
DX: K43.0 Incisional hernia with obstruction, without gangrene (principal); I95.81 Postprocedural hypotension; K21.9 Gastro-esophageal reflux disease without esophagitis; E78.5 Hyperlipidemia, unspecified; I10 Essential (primary) hypertension; E03.9 Hypothyroidism, unspecified; J40 Bronchitis, not specified as acute or chronic; Z79.2 Long term (current) use of antibiotics; Z79.4 Long term (current) use of insulin; Z95.820 Peripheral vascular angioplasty status with implants and grafts; E11.42 Type 2 diabetes mellitus with diabetic polyneuropathy; Z87.891 Personal history of nicotine dependence; Z86.718 Personal history of other venous thrombosis and embolism; F41.9 Anxiety disorder, unspecified; I73.9 Peripheral vascular disease, unspecified; E66.01 Morbid (severe) obesity due to excess calories; Z68.41 Body mass index [BMI] 40.0-44.9, adult; Z79.02 Long term (current) use of antithrombotics/antiplatelets; Z79.82 Long term (current) use of aspirin; Z79.899 Other long term (current) drug therapy; Z88.1 Allergy status to other antibiotic agents
CPT/HCPCS: 94760 ×3; 81025; 86900 ×2; 86901 ×2; 80053 ×2; 83036; 85025 ×2; 85027; 86850 ×2; 88302; 49561; 49568; C1781; J2250; J1644; J2710; J0690; J2405; J2001; J1650 ×2; J3010; J1885 ×2; J1170; J0330; J2704

== ENCOUNTER → 2017-11-17 | Day surgery (SDC) | payer OTHER ==
[2017-11-12 16:10] VITALS: BMI 45.8
[~2017-11-17] MED LIST changes: -DEXAMETHASONE SOD PHOSPHATE 10 MG/ML 1 ML VIAL IV ONE; -HEPARIN SODIUM,PORCINE 5,000 UNIT/ML 1 ML VIAL SQ ONE; -HYDROmorphone 1 MG/ML 1 ML SYRINGE IVP PRN; +INSULIN ASPART 100 UNIT/ML 1 ML 10 ML VIAL SQ ONE; +IV FLUID CONTINUATION 1,000 ML IV ONE; -LACTATED RINGERS 1,000 ML IV SCH; +LIDOCAINE 1% 20 ML VIAL (10MG/ML) FOR IV START INTRADERMA PRN; +LIDOCAINE 1% INJ 10MG/ML (20 ML MDV) ONE; -ONDANSETRON 4 MG/2 ML VIAL IVP ONE; +PROPOFOL 10 MG/ML 20 ML VIAL IV ONE; -ceFAZolin 2 GM in SODIUM CHLORIDE 0.9% 100 ML IVPB ONE; -fentaNYL (PF) 50 MCG/ML 2 ML AMP IV PRN
[2017-11-17 07:45] VITALS: RESP 16; TEMP 97
[2017-11-17] MEDS: LACTATED RINGERS 1,000 ML IV SCH ×2 (07:45→08:53)
[2017-11-17 07:48] LABS: Glucose,Whole Blood 304 mg/dL (75-99)
[2017-11-17 09:36] LABS: Glucose,Whole Blood 290 mg/dL (75-99)
[2017-11-17 09:50] VITALS: BP 122/60; PULSE 75
--- NOTE | 2017-11-17 10:10 | P.PCN ---
Date of Procedure: 11/17/17 Procedure(s) Performed: Procedure: Total colonoscopy. Preoperative diagnosis: Screening for neoplasia, patient has history of constipation and intermittent rectal bleeding. Postoperative diagnosis: Exam within normal limits. Preparation: HalfLytely prep. Sedation: Was provided by anesthesia. Brief clinical history: The patient is a 42-year-old female who is scheduled for this evaluation for screening for neoplasia age being her risk factor. In addition, she has history of constipation and intermittent episodes of rectal bleeding. No family history of colon cancer. The patient has no abdominal complaints, change in bowel habits or anemia. Procedure: With the patient on her left lateral decubitus position and after informed consent and adequate sedation, the perianal area was inspected and it did not show any fissures or fistulas. There were no masses felt on digital rectal examination. The Olympus CFQ 160L video colonoscope was then inserted in the rectum in the usual fashion and advanced to the cecum. The mucosa appeared healthy. No polyps or tumors were seen. No obvious diverticular disease or other pathology. I retroflexed the endoscope in the rectum before the endoscope was withdrawn. The patient tolerated the procedure well. Plan: The patient was reassured. Discussed dietary measures. She will follow- up with you as planned and I recommended repeat exam in 10 years.
== END ==
LOC: ORWHC2ENDO 07:18
DX: K62.5 Hemorrhage of anus and rectum (principal); K59.00 Constipation, unspecified; I10 Essential (primary) hypertension; I48.91 Unspecified atrial fibrillation; E11.9 Type 2 diabetes mellitus without complications; Z86.718 Personal history of other venous thrombosis and embolism; K21.9 Gastro-esophageal reflux disease without esophagitis; I47.1 Supraventricular tachycardia; G47.33 Obstructive sleep apnea (adult) (pediatric); E07.9 Disorder of thyroid, unspecified; E78.5 Hyperlipidemia, unspecified; Z79.02 Long term (current) use of antithrombotics/antiplatelets; Z79.82 Long term (current) use of aspirin; Z79.890 Hormone replacement therapy; Z79.4 Long term (current) use of insulin; Z79.899 Other long term (current) drug therapy; Z88.1 Allergy status to other antibiotic agents
CPT/HCPCS: 81025; 45378; J2001; J2704

== ENCOUNTER → 2018-04-08 | Outpatient (CLI) | payer OTHER ==
--- NOTE | 2018-04-08 21:53 | MR ---
EXAMINATION TYPE: MR brain wo/w con DATE OF EXAM: 04/08/2018 COMPARISON: CT brain 06/09/2017 HISTORY: Lt sided facial pain, headaches CONTRAST: Performed utilizing 12 mL intravenous Gadavist gadolinium contrast. TECHNIQUE: Multiplanar, multiecho imaging on a 3.0 Carmen magnet is performed through the brain. Stud y is performed within 24 hours of arrival to the hospital. The craniovertebral junction is normal. The pituitary is normal. Diffusion-weighted imaging is performed. No abnormal hyperintensity is present to suggest an acute i ntracranial infarct or acute ischemic change. Signal through the brain is normal. Ventricles and sulci are appropriate for the patient age. Following contrast administration, no abnormal enhancement is evident. IMPRESSIONS: 1. Normal pre and postcontrast rick brain brain.
== END | disposition home or self-care (01) ==
LOC: RADMRIMAIN 20:21
PROVIDERS: ATTEND Family Medicine
DX: G50.1 Atypical facial pain (principal); R20.2 Paresthesia of skin
CPT/HCPCS: 70553; A9581

== ENCOUNTER → 2018-04-22 | Outpatient (CLI) | payer OTHER ==
[2018-04-22 18:59] LABS: Rheumatoid Factor 8 IU/mL (0-15)
[2018-04-22 20:12] LABS: DNA Double-Stranded POSITIVE (NEGATIVE)
[2018-04-23 13:27] LABS: ANA Pattern Homogeneous
== END ==
LOC: LABWHC1 14:46
PROVIDERS: ATTEND Psychiatry & Neurology Neurology
DX: M31.5 Giant cell arteritis with polymyalgia rheumatica (principal)
CPT/HCPCS: 36415; 85652; 86038; 86039; 86140; 86225; 86431

== ENCOUNTER → 2018-06-30 | Outpatient (CLI) | payer OTHER ==
--- NOTE | 2018-06-30 15:44 | US ---
EXAMINATION TYPE: US kidneys/renal and bladder DATE OF EXAM: 06/30/2018 COMPARISON: CT abdomen pelvis January 23, 2017 CLINICAL HISTORY: R31.9 Hematuria. Macroscopic hematuria, diabetic EXAM MEASUREMENTS: Right Kidney: 10.9 x 5.7 x 4.6 cm Left Kidney: 11.7 x 5.3 x 4.7 cm Right Kidney: Possible lower pole echogenic lesion = 2.0 x 1.4 x 1.1 cm. Medial anechoic lesion seen at hilum - 2.8 x 2.0 x 2.4 cm Left Kidney: wnl Bladder: distended, wnl Bilateral Jets seen There is no evidence for hydronephrosis at this point in time. No nephrolithiasis is seen. There is vague 2.0 cm hyperechoic lesion lower pole level right kidney felt to reflect correspond to area of f ocal cortical thinning axial image [address] Technologist pichardo 2.8 cm hypoechoic to anechoic round a devi without definitive corresponding CT abnormality, patient had prominent pelvis without calyceal di latation on CT. The urinary bladder is anechoic. Bilateral ureteral jets are seen. IMPRESSION: Can't not exclude new solid right renal mass, advise follow-up renal protocol contrast-enhanced CT or MRI to further evaluate.
== END ==
LOC: RADUSWWP 14:05
PROVIDERS: ATTEND Family Medicine
DX: R31.9 Hematuria, unspecified (principal)
CPT/HCPCS: 76770

== ENCOUNTER → 2018-07-08 | Outpatient (CLI) | payer OTHER ==
[2018-07-08 10:40] LABS: Blood Urea Nitrogen 17 mg/dL (7-17)
--- NOTE | 2018-07-08 11:42 | CT ---
EXAMINATION TYPE: CT abdomen wo/w con DATE OF EXAM: 07/08/2018 COMPARISON: 01/23/2017 HISTORY: Renal Mass CT DLP: 2194.0 mGycm CONTRAST: CT scan of the abdomen is performed without and with Oral Contrast and with IV Contrast, patient inj ected with 100 mL of Isovue 300. FINDINGS: LUNG BASES-: No visible nodule. No infiltrate. LIVER/GB: No calcified gallstones. No space occupying hepatic lesion. Biliary tree is of normal ca liber. PANCREAS: No inflammation. No distinct mass. SPLEEN: No splenic enlargement. No lesion seen. ADRENALS: No nodule. No thickening. KIDNEYS/BLADDER: No hydronephrosis. No nephrolithiasis. No distinct renal mass. Urinary bladder g rossly unremarkable. BOWEL: Normal appendix. Normal bowel caliber. No inflammation. LYMPH NODES: No greater than 1cm abdominal or pelvic lymph nodes are appreciated. AORTA: No significant abnormality. OSSEOUS STRUCTURES: No significant abnormality is seen. OTHER: Right periumbilical fat-containing hernia. IMPRESSION: 1. No evidence for renal lesion.
== END | disposition home or self-care (01) ==
LOC: RADCTMAIN 09:57
PROVIDERS: ATTEND Family Medicine
DX: N28.89 Other specified disorders of kidney and ureter (principal); Z88.1 Allergy status to other antibiotic agents; Z88.8 Allergy status to other drugs, medicaments and biological substances
CPT/HCPCS: 82565; 84520; 74170; 36415; Q9967

== ENCOUNTER → 2018-09-10 | Outpatient (CLI) | payer OTHER ==
[2018-09-10 12:08] LABS: Basophils % (A) 1 %; Eosinophils # (A) 0.2 k/uL (0-0.7); Eosinophils % (A) 2 %; HCT 42.3 % (34.0-46.0); HGB 13.4 gm/dL (11.4-16.0); Lymphocytes # (A) 1.5 k/uL (1.0-4.8); Lymphocytes % (A) 17 %; MCH 26.5 pg (25.0-35.0); MCHC 31.6 g/dL (31.0-37.0); MCV 83.7 fL (80.0-100.0); Mean Platelet Volume 6.9; Monocytes # (A) 0.6 k/uL (0-1.0); Monocytes % (A) 7 %; Neutrophils # (A) 6.8 k/uL (1.3-7.7); Neutrophils % (A) 73 %; Platelet Count 276 k/uL (150-450); RBC 5.05 m/uL (3.80-5.40); RDW 14.6 % (11.5-15.5); WBC 9.3 k/uL (3.8-10.6)
== END ==
LOC: LABPAT 11:34
PROVIDERS: ATTEND Surgery
DX: Z01.812 Encounter for preprocedural laboratory examination (principal); K43.2 Incisional hernia without obstruction or gangrene; K43.9 Ventral hernia without obstruction or gangrene
CPT/HCPCS: 85025

== ENCOUNTER 2018-09-14 07:58 | Day surgery (SDC) | payer OTHER ==
[2018-09-13 12:05] VITALS: BMI 44.6
[~2018-09-14 07:58] MED LIST changes: +DEXAMETHASONE SOD PHOSPHATE 10 MG/ML 1 ML VIAL IV ONE; +HEPARIN SODIUM,PORCINE 5,000 UNIT/ML 1 ML VIAL SQ ONE; +HYDROmorphone 0.5 MG/0.5 ML SYRINGE IVP PRN; -INSULIN ASPART 100 UNIT/ML 1 ML 10 ML VIAL SQ ONE; -IV FLUID CONTINUATION 1,000 ML IV ONE; -LIDOCAINE 1% 20 ML VIAL (10MG/ML) FOR IV START INTRADERMA PRN; -LIDOCAINE 1% INJ 10MG/ML (20 ML MDV) ONE; -PROPOFOL 10 MG/ML 20 ML VIAL IV ONE; +ceFAZolin IN SWFI 2 GM/20 ML SYRINGE IVP ONE
[2018-09-14] MEDS: ONDANSETRON 4 MG/2 ML VIAL IVP ONE ×2 (08:32→11:15)
[2018-09-14] MEDS: LACTATED RINGERS 1,000 ML IV SCH (08:32)
[2018-09-14 08:36] LABS: Glucose,Whole Blood 286 mg/dL (75-99)
[2018-09-14] MEDS ORDERED: INSULIN ASPART (NovoLOG) 100 UNIT/ML VIAL SQ ONE ×3 (08:45→12:09)
[2018-09-14] MEDS ORDERED: MIDAZOLAM 2 MG/2 ML VIAL IVP ONE (08:51)
[2018-09-14] MEDS ORDERED: fentaNYL (PF) 50 MCG/ML 2 ML AMP IVP ONE (08:51)
[2018-09-14 08:53] LABS: Anion Gap 8 mmol/L; Blood Urea Nitrogen 23 mg/dL (7-17); Calcium 9.4 mg/dL (8.4-10.2); Carbon Dioxide 26 mmol/L (22-30); Chloride 104 mmol/L (98-107); Glucose 289 mg/dL (74-99); Potassium 4.2 mmol/L (3.5-5.1); Sodium 138 mmol/L (137-145)
[2018-09-14] MEDS ORDERED: HEPARIN SODIUM,PORCINE 5,000 UNIT/ML 1 ML VIAL SQ ONE (09:00)
--- NOTE | 2018-09-14 09:01 | P.GSHP ---
History of Present Illness H&P Date: 09/14/18 Chief Complaint: Incarcerated recurrent incisional hernia This a 40-year-old female who is developed a recurrent incarcerated incisional hernia. Patient's initial surgery was a aortobifem. The mass along the right periumbilical portion of her incision. She presents today for open repair. Past Medical History Past Medical History: Atrial Fibrillation, Diabetes Mellitus, Deep Vein Thrombosis (DVT), GERD/Reflux, Hyperlipidemia, Hypertension, Musculoskeletal Disorder, Sleep Apnea/CPAP/BIPAP, Supraventricular Tachycardia (SVT), Thyroid Disorder, Vascular Disorder Additional Past Medical History / Comment(s): Frozen shoulder L side, no cpap used, hiatal hernia, gastritis, hx anemia, DVT left leg after aorto/bypass surg. per pt., hx A-fib over 1 year ago related to sleep apnea per pt., intermittent blood in urine-followed by urologist, hx. SVT History of Any Multi-Drug Resistant Organisms: None Reported Past Surgical History: Breast Surgery, Section, Ear Surgery, Heart Catheterization, Hernia Repair, Orthopedic Surgery Additional Past Surgical History / Comment(s): Aortic Abdominal Bypass-12/2015, Left Carpal Tunnel, Rt Breast biopsy, stents maritza legs Past Anesthesia/Blood Transfusion Reactions: Family History of Problems w/ Anesthesia, Postoperative Nausea & Vomiting (PONV) Additional Past Anesthesia/Blood Transfusion Reaction / Comment(s): States her brother stopped breathing/heart stopped at the dentist, R/T ALLERGY TO RX. Smoking Status: Former smoker - Past Family History Mother Family Medical History: Cancer Additional Family Medical History / Comment(s): Kidney Brother(s) Family Medical History: Cancer Additional Family Medical History / Comment(s): Esophageal Medications and Allergies Home Medications Medication Instructions Recorded Confirmed Type Aspirin EC [Ecotrin Low Dose] 81 mg PO DAILY 09/24/15 09/13/18 History Insulin NPH Hum/Reg Insulin Hm 70 units SQ BID 09/24/15 09/13/18 History [NovoLIN 70-30 100 UNIT/ML VIAL] Levothyroxine Sodium [Synthroid] 175 mcg PO DAILY 09/24/15 09/13/18 History ALPRAZolam [Xanax] 0.25 mg PO DAILY PRN 01/16/17 09/13/18 History Atorvastatin [Lipitor] 40 mg PO W/SUPPER 01/16/17 09/13/18 History Clopidogrel [Plavix] 75 tab PO DAILY 01/16/17 09/13/18 History Hydrochlorothiazide 25 mg PO DAILY 01/16/17 09/13/18 History Ranitidine HCl 150 mg PO BID 10/01/17 09/13/18 History INSULIN ASPART (NovoLOG) [NovoLOG See Protocol SQ ACHS PRN 11/12/17 09/13/18 History (formulary)] Lisinopril [Zestril] 5 mg PO DAILY 11/12/17 09/13/18 History Metoprolol Succinate [Toprol XL] 50 mg PO BID 11/12/17 09/14/18 History Allergies Allergy/AdvReac Type Severity Reaction Status Date / Time doxycycline Allergy Nausea & Verified 09/14/18 08:12 Vomiting erythromycin base Allergy Nausea & Verified 09/14/18 08:12 Vomiting Surgical - Exam Vital Signs Temp Pulse Resp BP Pulse Ox 98.3 F 71 17 120/59 98 09/14/18 08:28 09/14/18 08:28 09/14/18 08:28 09/14/18 08:28 09/14/18 08:28 - General well developed, well nourished, no distress - Eyes PERRL - ENT normal pinna - Neck no masses - Respiratory normal expansion - Cardiovascular Rhythm: regular - Abdomen Abdomen: soft, non tender Hernia: incisional (5 cm recurrent incisional hernia located in the right periumbilical area.) Results - Labs Abnormal Lab Results - Last 24 Hours (Table) 09/14/18 Range/Units 08:35 POC Glucose (mg/dL) 286 H (75-99) mg/dL Assessment and Plan Assessment: Recurrent incarcerated incisional hernia, we will perform open repair.
[2018-09-14] MEDS ORDERED: NEOSTIGMINE 1 MG/ML 10 ML VIAL ONE (09:10)
[2018-09-14] MEDS ORDERED: PHENYLEPHRINE-0.9% NACL SYG 1 MG/10 ML SYRINGE ONE (09:10)
[2018-09-14] MEDS ORDERED: ROPIVACAINE 5 MG/ML 30 ML VIAL ONE (09:10)
[2018-09-14] MEDS ORDERED: PROPOFOL 10 MG/ML 20 ML VIAL IV ONE (09:10)
[2018-09-14] MEDS ORDERED: GLYCOPYRROLATE 0.2 MG/ML 2 ML VIAL ONE (09:10)
[2018-09-14] MEDS ORDERED: ROCURONIUM BROMIDE 10 MG/ML 10 ML VIAL IV ONE (09:10)
[2018-09-14] MEDS ORDERED: LIDOCAINE 1% INJ 10MG/ML (20 ML MDV) ONE (09:10)
[2018-09-14] MEDS ORDERED: KETOROLAC 30 MG/ML 1 ML VIAL ONE (09:10)
[2018-09-14] MEDS ORDERED: ACETAMINOPHEN IV (For NPO) 1,000 MG/100 ML VIAL ONE (09:10)
[2018-09-14] MEDS ORDERED: fentaNYL (PF) 50 MCG/ML 2 ML AMP ONE (09:10)
[2018-09-14] MEDS ORDERED: LIDOCAINE 2%-EPI 1:100,000 20 ML VIAL ONE (09:10)
[2018-09-14] MEDS ORDERED: SUCCINYLCHOLINE CHLORIDE 100 MG/5 ML SYR IV ONE (09:10)
[2018-09-14] MEDS ORDERED: MIDAZOLAM 2 MG/2 ML VIAL ONE (09:10)
--- NOTE | 2018-09-14 09:38 | P.ONQ ---
Anesthesiology Proc Note - PNB - Peripheral Nerve Block Performed Bilateral Rectus Abdominis Single Time Out Performed: Yes Procedure Start Time: 08:50 Indication: Acute Post-Operative Pain Specifically requested for management of pain by DrRenee: Ryder Galvez Sedation Type: Sedate with meaningful contact maintained Preparation: Sterile Prep Position: Supine Catheter: None Needle Types: Other (see comment) (Pajunk) Needle Size: 100mm (4") Needle Gauge: 21 Technique: Ultrasound Injectate: Other (see comment) (Ropivacaine 0.25%/lidocaine 0.5% 30 mL per side) Adjunct: Epinephrine (see comment for dilution ratio) (1:200,000) Blood Aspirated: No Pain Paresthesia on Injection Noted: No Resistance on Injection: Normal Events: Uneventful and Well Tolerated
[2018-09-14] MEDS ORDERED: LACTATED RINGERS 1,000 ML IV ONE ×3 (10:01→11:49)
[2018-09-14] MEDS ORDERED: ACETAMINOPHEN TAB 325 MG TAB PO PRN (11:17)
[2018-09-14] MEDS ORDERED: ONDANSETRON 4 MG/2 ML VIAL IVP PRN (11:17)
[2018-09-14] MEDS ORDERED: NALOXONE 0.4 MG/ML 1 ML VIAL IV PRN (11:17)
[2018-09-14] MEDS ORDERED: HYDROmorphone 0.5 MG/0.5 ML SYRINGE IVP PRN (11:17)
[2018-09-14] MEDS ORDERED: HYDROcodone/APAP 5-325MG 1 EACH TAB PO PRN (11:17)
--- NOTE | 2018-09-14 11:17 | P.OP ---
Date of Procedure: 09/14/18 Preoperative Diagnosis: Recurrent incarcerated incisional hernia Postoperative Diagnosis: Recurrent incarcerated incisional hernia Procedure(s) Performed: (Of recurrent incarcerated incisional hernia Partial omentectomy Anesthesia: NURIA Surgeon: Ryder Galvez Estimated Blood Loss (ml): 20 Pathology: other (Omentum) Condition: stable Disposition: PACU Description of Procedure: The patient's placed on the operative table in supine position. She received general anesthesia. Her abdomen was prepped and draped usual sterile fashion. The abdomen was entered through her previous midline scar. There was an incarcerated incisional hernia located to the right side of the abdominal wall. The perineal cavity is entered. The incarcerated omentum was dissected free and reduced.'s. The omentum was transected with hemostats and ligated with 3-0 GI silk suture. The specimen sent to pathology. The fascial repair was then performed using [id number] 0 Ethibond suture. After the fascia was repaired a #1 strep to fix suture was used to secure the fascia. And then the Prolene mesh was placed over top of the repair and secured with the secure strap tacker. A MORRO drains placed over top the repair brought through separate stab incision. Elvia's fascia was closed using 0 Vicryl suture. Skin was closed kris. Patient top procedure well was sent to recovery room stable condition.
[2018-09-14] MEDS ORDERED: PROMETHAZINE INJ 25 MG/ML 1 ML VIAL IVPB ONE (11:30)
[2018-09-14 12:05] LABS: Glucose,Whole Blood 322 mg/dL (75-99)
[2018-09-14] MEDS ORDERED: ALPRAZolam 0.25 MG TAB PO PRN (13:28)
[2018-09-14] MEDS: KETOROLAC 30 MG/ML 1 ML VIAL IVP SCH ×3 (14:17→23:30)
[2018-09-14 16:01] LABS: Glucose,Whole Blood 289 mg/dL (75-99)
[2018-09-14] MEDS: INSULIN ASPART (NovoLOG) 100 UNIT/ML VIAL SQ SCH ×2 (16:46→21:01)
[2018-09-14] MEDS: INSULN ASP PRT/INSULIN ASPART 100 UNIT/ML 10 ML VIAL SQ SCH (17:07)
[2018-09-14] MEDS ORDERED: ATORVASTATIN 40 MG TAB PO SCH (17:30)
[2018-09-14 20:52] LABS: Glucose,Whole Blood 252 mg/dL (75-99)
[2018-09-14] MEDS: FAMOTIDINE 20 MG TAB PO SCH (21:01)
[2018-09-14] MEDS: METOPROLOL SUCCINATE (ER) 50 MG TAB.ER.24H PO SCH (21:01)
[2018-09-15] MEDS: KETOROLAC 30 MG/ML 1 ML VIAL IVP SCH ×2 (05:22→11:30)
[2018-09-15] MEDS ORDERED: LEVOTHYROXINE 88 MCG TAB PO SCH (06:30)
[2018-09-15 07:16] LABS: Glucose,Whole Blood 356 mg/dL (75-99)
[2018-09-15] MEDS: INSULIN ASPART (NovoLOG) 100 UNIT/ML VIAL SQ SCH ×2 (07:29→12:46)
[2018-09-15] MEDS: INSULN ASP PRT/INSULIN ASPART 100 UNIT/ML 10 ML VIAL SQ SCH (07:29)
[2018-09-15] MEDS: LACTATED RINGERS 1,000 ML IV SCH (07:33)
[2018-09-15] MEDS ORDERED: ENOXAPARIN 40 MG/0.4 ML SYRINGE SQ SCH (09:00)
[2018-09-15] MEDS ORDERED: LISINOPRIL 5 MG TAB PO SCH (09:00)
[2018-09-15 09:01] VITALS: RESP 16
[2018-09-15] MEDS: FAMOTIDINE 20 MG TAB PO SCH (09:17)
[2018-09-15] MEDS: METOPROLOL SUCCINATE (ER) 50 MG TAB.ER.24H PO SCH (09:17)
[2018-09-15 12:07] LABS: Glucose,Whole Blood 337 mg/dL (75-99)
[2018-09-15] MEDS ORDERED: INSULIN ASPART (NovoLOG) 100 UNIT/ML VIAL SQ ONE (12:23)
[2018-09-15 12:49] VITALS: BP 129/60; PULSE 63; TEMP 97
--- NOTE | 2018-09-15 13:33 | P.DS ---
Providers Expected date of discharge: 09/15/18 Attending physician: Ryder Galvez Primary care physician: Hayde Zee Hospital Course: 43-year-old female who underwent repair of recurrent incarcerated incisional hernia and partial omentectomy. Patient is doing well postoperatively without any immediate complications. Her pain is tolerable. She is tolerating oral intake. Denies nausea or vomiting. She has been ambulating. Vital signs are stable. She is stable for discharge home today. Please see EMR for further hospital course details. DISCHARGE DIAGNOSIS: 1. Status post repair of recurrent incarcerated incisional hernia Nurse practitioner note has been reviewed by physician. Signing provider agrees with the documented findings, assessment, and plan of care. Plan - Discharge Summary Discharge Rx Participant: Yes New Discharge Prescriptions: New HYDROcodone/APAP 7.5-325MG [[place] 7.5-325] 1 tab PO Q6HR PRN 3 Days #12 tab PRN Reason: Pain Docusate [Colace] 100 mg PO BID #30 capsule No Action Levothyroxine Sodium [Synthroid] 175 mcg PO DAILY Aspirin EC [Ecotrin Low Dose] 81 mg PO DAILY Insulin NPH Hum/Reg Insulin Hm [NovoLIN 70-30 100 UNIT/ML VIAL] 70 units SQ BID ALPRAZolam [Xanax] 0.25 mg PO DAILY PRN PRN Reason: Anxiety Atorvastatin [Lipitor] 40 mg PO W/SUPPER Clopidogrel [Plavix] 75 tab PO DAILY Hydrochlorothiazide 25 mg PO DAILY Ranitidine HCl 150 mg PO BID INSULIN ASPART (NovoLOG) [NovoLOG (formulary)] See Protocol SQ ACHS PRN PRN Reason: Blood Sugar - High Lisinopril [Zestril] 5 mg PO DAILY Metoprolol Succinate [Toprol XL] 50 mg PO BID Discharge Medication List Aspirin EC [Ecotrin Low Dose] 81 mg PO DAILY 09/24/15 [History] Insulin NPH Hum/Reg Insulin Hm [NovoLIN 70-30 100 UNIT/ML VIAL] 70 units SQ BID 09/24/15 [History] Levothyroxine Sodium [Synthroid] 175 mcg PO DAILY 09/24/15 [History] ALPRAZolam [Xanax] 0.25 mg PO DAILY PRN 01/16/17 [History] Atorvastatin [Lipitor] 40 mg PO W/SUPPER 01/16/17 [History] Clopidogrel [Plavix] 75 tab PO DAILY 01/16/17 [History] Hydrochlorothiazide 25 mg PO DAILY 01/16/17 [History] Ranitidine HCl 150 mg PO BID 10/01/17 [History] INSULIN ASPART (NovoLOG) [NovoLOG (formulary)] See Protocol SQ ACHS PRN 11/12/17 [History] Lisinopril [Zestril] 5 mg PO DAILY 11/12/17 [History] Metoprolol Succinate [Toprol XL] 50 mg PO BID 11/12/17 [History] Docusate [Colace] 100 mg PO BID #30 capsule 09/15/18 [Rx] HYDROcodone/APAP 7.5-325MG [[place] 7.5-325] 1 tab PO Q6HR PRN 3 Days #12 tab 09/15/18 [Rx] Follow up Appointment(s)/Referral(s): Ryder Galvez MD [STAFF PHYSICIAN] - 09/21/18 3:30 pm Activity/Diet/Wound Care/Special Instructions: Continue diet as tolerated. practice good hand washing. No driving while taking [place] or any narcotic information No lifting over 10 pounds You may shower. No soaking or tub baths hot tubs or pools Very light activity until you are reevaluated at your follow up appointment with your surgeon Keep a log of your MORRO drain output. Bring with you to your follow-up appointment with Dr. Galvez (log given to you at discharge with instructions) PREVENA system will be removed at your follow up appointment with Dr. Galvez Call physician with any questions comments concerns worsening returning symptoms worsening fever 101.1 or higher, incision site drainage or change in MORRO drain output, issues with the wound vac, not tolerating diet not tolerating fluids.
== END 2018-09-15 14:10 | disposition home or self-care (01) ==
LOC: OR 07:58 → 6PED 11:43 → OR 09-15 14:10
PROVIDERS: ATTEND Surgery
DX: K43.0 Incisional hernia with obstruction, without gangrene (principal); I10 Essential (primary) hypertension; E11.9 Type 2 diabetes mellitus without complications; E78.5 Hyperlipidemia, unspecified; I73.9 Peripheral vascular disease, unspecified; E07.9 Disorder of thyroid, unspecified; F41.9 Anxiety disorder, unspecified; K21.9 Gastro-esophageal reflux disease without esophagitis; Z79.82 Long term (current) use of aspirin; Z79.02 Long term (current) use of antithrombotics/antiplatelets; Z88.1 Allergy status to other antibiotic agents; Z79.890 Hormone replacement therapy; Z79.899 Other long term (current) drug therapy; Z86.718 Personal history of other venous thrombosis and embolism; Z86.79 Personal history of other diseases of the circulatory system; Z87.891 Personal history of nicotine dependence; Z79.4 Long term (current) use of insulin
CPT/HCPCS: 81025; 88305; 80048; 64488; 49566; 49568; C1781; J2250; J1644; J1100; J2550; J2710; J2405; J2001; J1650; J3010; J1885 ×2; J2795; J0131; J2370; J0330; J2704; J0690

== ENCOUNTER 2018-10-09 12:32 | Emergency (ER) | payer OTHER ==
[2018-10-09 12:39] VITALS: TEMP 98
--- NOTE | 2018-10-09 13:01 | ED ---
General Adult HPI - General Chief complaint: Recheck/Abnormal Lab/Rx Stated complaint: GP Drain Time Seen by Provider: 10/09/18 12:40 Source: patient Mode of arrival: ambulatory Limitations: no limitations - History of Present Illness Initial comments: 43-year-old female presents or days post hernia repair by Dr. Galvez. Patient states her VILMA drain pulled out today and he told her to come in and get it removed. Patient not having any competitions there is no pain no increase in discharge no fevers no trouble eating or bowel movements. Patient has normal appetite. Patient states she was still getting some slight clear drainage from the tube out 60 mL every 12 hours. -: hour(s) (3) Location: abdomen Improves with: none Worsens with: none Associated Symptoms: denies other symptoms Treatments Prior to Arrival: none - Related Data Home Medications Medication Instructions Recorded Confirmed Aspirin EC [Ecotrin Low Dose] 81 mg PO DAILY 09/24/15 09/13/18 Insulin NPH Hum/Reg Insulin Hm 70 units SQ BID 09/24/15 09/13/18 [NovoLIN 70-30 100 UNIT/ML VIAL] Levothyroxine Sodium [Synthroid] 175 mcg PO DAILY 09/24/15 09/13/18 ALPRAZolam [Xanax] 0.25 mg PO DAILY PRN 01/16/17 09/13/18 Atorvastatin [Lipitor] 40 mg PO W/SUPPER 01/16/17 09/13/18 Clopidogrel [Plavix] 75 tab PO DAILY 01/16/17 09/13/18 Hydrochlorothiazide 25 mg PO DAILY 01/16/17 09/13/18 Ranitidine HCl 150 mg PO BID 10/01/17 09/13/18 INSULIN ASPART (NovoLOG) [NovoLOG See Protocol SQ ACHS PRN 11/12/17 09/13/18 (formulary)] Lisinopril [Zestril] 5 mg PO DAILY 11/12/17 09/13/18 Metoprolol Succinate [Toprol XL] 50 mg PO BID 11/12/17 09/14/18 Previous Rx's Medication Instructions Recorded Docusate [Colace] 100 mg PO BID #30 capsule 09/15/18 HYDROcodone/APAP 7.5-325MG [[place] 1 tab PO Q6HR PRN 3 Days #12 tab 09/15/18 7.5-325] Allergies Allergy/AdvReac Type Severity Reaction Status Date / Time doxycycline Allergy Nausea & Verified 10/09/18 12:37 Vomiting erythromycin base Allergy Nausea & Verified 10/09/18 12:37 Vomiting Patient : No Review of Systems ROS Statement: Those systems with pertinent positive or pertinent negative responses have been documented in the HPI. ROS Other: All systems not noted in ROS Statement are negative. Constitutional: Denies: fever Respiratory: Denies: cough Cardiovascular: Denies: chest pain Gastrointestinal: Denies: abdominal pain, nausea, vomiting, diarrhea, constipation Genitourinary: Denies: urgency Musculoskeletal: Denies: back pain Neurological: Denies: headache Past Medical History Past Medical History: Atrial Fibrillation, Diabetes Mellitus, Deep Vein Thrombosis (DVT), GERD/Reflux, Hyperlipidemia, Hypertension, Musculoskeletal Disorder, Sleep Apnea/CPAP/BIPAP, Supraventricular Tachycardia (SVT), Thyroid Disorder, Vascular Disorder Additional Past Medical History / Comment(s): Frozen shoulder L side, no cpap used, hiatal hernia, gastritis, hx anemia, DVT left leg after aorto/bypass surg. per pt., hx A-fib over 1 year ago related to sleep apnea per pt., intermittent blood in urine-followed by urologist, hx. SVT History of Any Multi-Drug Resistant Organisms: None Reported Past Surgical History: Breast Surgery, Section, Ear Surgery, Heart Catheterization, Hernia Repair, Orthopedic Surgery Additional Past Surgical History / Comment(s): Aortic Abdominal Bypass-12/2015, Left Carpal Tunnel, Rt Breast biopsy, stents maritza legs, incisional hernia repair 09-14-2018 Past Anesthesia/Blood Transfusion Reactions: Family History of Problems w/ Anesthesia, Postoperative Nausea & Vomiting (PONV) Additional Past Anesthesia/Blood Transfusion Reaction / Comment(s): States her brother stopped breathing/heart stopped at the dentist, R/T ALLERGY TO RX. Past Psychological History: Anxiety, Depression Smoking Status: Former smoker Past Alcohol Use History: None Reported Past Drug Use History: None Reported - Past Family History Mother Family Medical History: Cancer Additional Family Medical History / Comment(s): Kidney Brother(s) Family Medical History: Cancer Additional Family Medical History / Comment(s): Esophageal General Exam Limitations: no limitations General appearance: alert, in no apparent distress Respiratory exam: Present: normal lung sounds bilaterally. Absent: respiratory distress, wheezes, rales, rhonchi, stridor Cardiovascular Exam: Present: regular rate, normal rhythm, normal heart sounds. Absent: systolic murmur, diastolic murmur, rubs, gallop, clicks GI/Abdominal exam: Present: soft, normal bowel sounds, other (vilma drain. right mid abdomen. nontender, no erythema). Absent: distended, tenderness, guarding, rebound, rigid Course Vital Signs 10/09/18 12:37 Temperature 98 F Pulse Rate 75 Respiratory 18 Rate Blood Pressure 138/72 O2 Sat by Pulse 97 Oximetry Procedures - Procedures Initial comment: removed VILMA drain tube with william encarnacion, PAC, remove suture and removed easily. no complications. pt tolerated it well. dressing applied Medical Decision Making - Medical Decision Making discussed with dr. cooper, pt to have close f/u with surgeon or return if sx worsen, red, pain, increase in discharge Disposition Clinical Impression: VILMA drain, broken Disposition: HOME SELF-CARE Condition: Good Is patient prescribed a controlled substance at d/c from ED?: No Referrals: Hayde Zee DO [Primary Care Provider] - 1-2 days Time of Disposition: 13:11
[2018-10-09 13:16] VITALS: BP 132/78; PULSE 71; RESP 16
== END 2018-10-09 13:15 | disposition home or self-care (01) ==
LOC: EC 12:32
DX: T85.698A Other mechanical complication of other specified internal prosthetic devices, implants and grafts, initial encounter (principal); I48.91 Unspecified atrial fibrillation; E11.9 Type 2 diabetes mellitus without complications; K21.9 Gastro-esophageal reflux disease without esophagitis; E78.5 Hyperlipidemia, unspecified; I10 Essential (primary) hypertension; E07.9 Disorder of thyroid, unspecified; Z87.891 Personal history of nicotine dependence; Z88.1 Allergy status to other antibiotic agents; Z79.02 Long term (current) use of antithrombotics/antiplatelets; Z79.4 Long term (current) use of insulin; Z79.82 Long term (current) use of aspirin; Z79.890 Hormone replacement therapy; Z79.899 Other long term (current) drug therapy; Z86.718 Personal history of other venous thrombosis and embolism; Z95.828 Presence of other vascular implants and grafts; Z95.818 Presence of other cardiac implants and grafts; Z80.0 Family history of malignant neoplasm of digestive organs
CPT/HCPCS: 99283

== ENCOUNTER → 2022-10-27 | Outpatient (CLI) | payer OTHER ==
[2022-10-27 15:45] VITALS: BP 102/57; PULSE 84; TEMP 98.5; BMI 47.5
[2022-10-28 02:16] LABS: HCT 29.1 % (37.2-46.3); HGB 7.8 g/dL (12.0-15.0); MCH 21.4 pg (27.0-32.0); MCHC 26.8 g/dL (32.0-37.0); MCV 79.9 fL (80.0-97.0); Mean Platelet Volume 10.3 fL (9.5-12.2); NRBC Per 100 WBC 0.4 /100 WBCS (0.0-0.0); Platelet Count 341 X 10*3/uL (140-440); RBC 3.64 X 10*6/uL (4.10-5.20); RDW 23.1 % (11.5-14.5); WBC 10.51 X 10*3/uL (4.50-10.00)
[2022-10-28 04:26] LABS: ALT 21 U/L (8-44); AST 23 U/L (13-35); African American GFR (CKD) 80.2 (60.0-200.0); Albumin 4.2 g/dL (3.8-4.9); Albumin/Globulin Ratio 1.56 (1.60-3.17); Alkaline Phosphatase 159 U/L (41-126); Blood Urea Nitrogen 22.4 mg/dL (9.0-27.0); Calcium 9.7 mg/dL (8.7-10.3); Carbon Dioxide 26.3 mmol/L (20.0-27.5); Chloride 104 mmol/L (96-109); Globulin 2.7 g/dL (1.6-3.3); Glucose 103 mg/dL (70-110); Non-African American GFR(CKD) 69.2 (60.0-200.0); Potassium 4.3 mmol/L (3.5-5.5); Sodium 143 mmol/L (135-145); Total Bilirubin <0.15 mg/dL (0.30-1.20)
--- NOTE | 2022-12-09 09:12 | P.HPBAR ---
Bariatric H&P - History & Physicial H&P Date: 10/27/22 History & Physicial: Visit/CC: new patient Patient initial contact: Initial weight: Initial weight in pounds: Height: 5 ft 6.25 in Initial BMI: Last weight: Current weight: 134.717 kg Current weight in pounds: 297.00 Current BMI: 47.5 [place] body weight (based on NIH guidelines): 59.534 kg Excess body weight loss: The patient is a 47 year-old F who presents for Bariatric Assessment. Patient presents today for presurgical consultation. Her BMI is 48. She currently weighs 207 pounds. She is interested in sleeve gastrectomy. Past Medical History Past Medical History: Atrial Fibrillation, Diabetes Mellitus, Deep Vein Thrombosis (DVT), GERD/Reflux, Hyperlipidemia, Hypertension, Musculoskeletal Disorder, Sleep Apnea/CPAP/BIPAP, Supraventricular Tachycardia (SVT), Thyroid Disorder, Vascular Disorder Additional Past Medical History / Comment(s): Frozen shoulder L side, no cpap used, hiatal hernia, gastritis, hx anemia, DVT left leg after aorto/bypass surg. per pt., hx A-fib over 1 year ago related to sleep apnea per pt., intermittent blood in urine-followed by urologist, hx. SVT History of Any Multi-Drug Resistant Organisms: None Reported Past Surgical History: Breast Surgery, Section, Ear Surgery, Heart Catheterization, Hernia Repair, Orthopedic Surgery Additional Past Surgical History / Comment(s): Aortic Abdominal Bypass-12/2015, Left Carpal Tunnel, Rt Breast biopsy, stents maritza legs, incisional hernia repair 09-14-2018 Past Anesthesia/Blood Transfusion Reactions: Family History of Problems w/ Anesthesia, Postoperative Nausea & Vomiting (PONV) Additional Past Anesthesia/Blood Transfusion Reaction / Comm: States her brother stopped breathing/heart stopped at the dentist, R/T ALLERGY TO RX. Past Psychological History: Anxiety, Depression Smoking Status: Never smoker Past Alcohol Use History: None Reported Additional Past Alcohol Use History / Comment(s): Quit smoking in 2014. Started when a teenager, 1 PPD. Past Drug Use History: None Reported - Past Family History Mother Family Medical History: Cancer Additional Family Medical History / Comment(s): Kidney Brother(s) Family Medical History: Cancer Additional Family Medical History / Comment(s): Esophageal Surgical - Exam Vital Signs Temp Pulse BP 98.5 F 84 102/57 10/27/22 15:35 10/27/22 15:35 10/27/22 15:35 - General well developed, well nourished, no distress - Eyes PERRL - ENT normal pinna - Neck no masses - Respiratory normal expansion - Cardiovascular Rhythm: regular - Abdomen Abdomen: soft, non tender Results - Labs 10/27/22 16:04 10/27/22 16:04 Bariatric Assessment & Plan Plan: Morbid obesity. Patient is an excellent understanding sleeve gastric. When over the risks and benefits of procedure. She wishes risk of gastric staple line bleeding, scarring and disruption. She'll be scheduled for EGD. Bariatric Checklist Checklist: Plan: Checklist: EGD: 1. Hiatal hernia: 2. H. Pylori: HgbA1c: Vitamin D: Smoking: Former smoker Primary care physician referral: Psychiatry clearance: Cardiology clearance: Sleep study: Diet journal: VTE risk score: VTE risk level: Rehab needs at discharge:
== END ==
LOC: BARWHC3 15:13
PROVIDERS: ATTEND Surgery
DX: E66.01 Morbid (severe) obesity due to excess calories (principal); Z68.42 Body mass index [BMI] 45.0-49.9, adult; I48.0 Paroxysmal atrial fibrillation; E11.9 Type 2 diabetes mellitus without complications; Z86.718 Personal history of other venous thrombosis and embolism; K21.9 Gastro-esophageal reflux disease without esophagitis; E78.5 Hyperlipidemia, unspecified; I10 Essential (primary) hypertension; Z98.84 Bariatric surgery status; Z88.6 Allergy status to analgesic agent; Z88.1 Allergy status to other antibiotic agents; Z79.4 Long term (current) use of insulin; Z79.899 Other long term (current) drug therapy; Z87.891 Personal history of nicotine dependence
CPT/HCPCS: 84425; 80053; 82607; 82746; 85027; 82306; 83036; 93005; G0463; 99212

== ENCOUNTER 2022-12-11 07:39 | Day surgery (SDC) | payer OTHER ==
[~2022-12-11 07:39] MED LIST changes: -DEXAMETHASONE SOD PHOSPHATE 10 MG/ML 1 ML VIAL IV ONE; -HEPARIN SODIUM,PORCINE 5,000 UNIT/ML 1 ML VIAL SQ ONE; -HYDROmorphone 0.5 MG/0.5 ML SYRINGE IVP PRN; +LACTATED RINGERS 1,000 ML IV SCH; +LIDOCAINE 1% (10MG/ML) FOR IV START INTRADERMA PRN; -ceFAZolin IN SWFI 2 GM/20 ML SYRINGE IVP ONE
[2022-12-11 08:00] VITALS: TEMP 97.4
[2022-12-11] MEDS ORDERED: LACTATED RINGERS 1,000 ML IV ONE ×2 (08:10)
[2022-12-11] MEDS ORDERED: MIDAZOLAM 2 MG/2 ML VIAL ONE (08:12)
[2022-12-11] MEDS ORDERED: LIDOCAINE 2% INJ 20 MG/ML (2 ML VIAL) ONE (08:12)
[2022-12-11] MEDS ORDERED: PROPOFOL 10 MG/ML 20 ML VIAL IV ONE (08:12)
[2022-12-11] MEDS ORDERED: KETAMINE 10 MG/ML 20 ML VIAL ONE (08:12)
[2022-12-11 08:15] LABS: Glucose,Whole Blood 200 mg/dL (70-110)
--- NOTE | 2022-12-11 08:17 | P.GSHP ---
History of Present Illness H&P Date: 12/11/22 Chief Complaint: GERD, morbid obesity This is a 47-year-old female who presents safer EGD. Patient history of GERD. Her BMI is 53. Past Medical History Past Medical History: Atrial Fibrillation, Blood Disorder, Diabetes Mellitus, Deep Vein Thrombosis (DVT), GERD/Reflux, Hyperlipidemia, Hypertension, Sleep Apnea/CPAP/BIPAP, Supraventricular Tachycardia (SVT), Thyroid Disorder, Vascular Disorder Additional Past Medical History / Comment(s): EGD for bariatric surgery. Frozen shoulder L side/dissipating, DALE/no cpap used, past hiatal hernia, hx anemia with iron infusions October 2022, DVT left leg after aorto/bypass surg. per pt., hx A-fib over 1 year ago related to sleep apnea per pt., intermittent blood in urine-followed by urologist. History of Any Multi-Drug Resistant Organisms: None Reported Past Surgical History: Breast Surgery, Section, Ear Surgery, Heart Catheterization, Hernia Repair, Orthopedic Surgery Additional Past Surgical History / Comment(s): Aortic Abdominal Bypass-12/2015, Left Carpal Tunnel, Rt Breast biopsy, stents maritza legs, incisional hernia repair 09-14-2018, bilateral myringotomy/tubes, egd, colonoscopy. Past Anesthesia/Blood Transfusion Reactions: Family History of Problems w/ Anesthesia, Postoperative Nausea & Vomiting (PONV) Additional Past Anesthesia/Blood Transfusion Reaction / Comment(s): Severe PONV. States her brother stopped breathing/heart stopped at the dentist, R/T ALLERGY TO RX. Pt has never had a blood transfusion. Smoking Status: Former smoker - Past Family History Mother Family Medical History: Cancer Additional Family Medical History / Comment(s): Kidney Brother(s) Family Medical History: Cancer Additional Family Medical History / Comment(s): Esophageal Medications and Allergies Home Medications Medication Instructions Recorded Confirmed Type Aspirin EC [Ecotrin Low Dose] 81 mg PO QAM 09/24/15 12/11/22 History Levothyroxine Sodium [Synthroid] 175 mcg PO QAM 09/24/15 12/11/22 History Atorvastatin [Lipitor] 40 mg PO QAM 01/16/17 12/11/22 History Clopidogrel [Plavix] 75 tab PO QAM 01/16/17 12/11/22 History hydroCHLOROthiazide 25 mg PO QAM 01/16/17 12/11/22 History Metoprolol Succinate [Toprol XL] 50 mg PO BID 11/12/17 12/11/22 History lisinopriL [Zestril] 5 mg PO QAM 11/12/17 12/11/22 History Insulin Glulisine [Apidra] 1 - 6 units SQ ACHS 10/23/22 12/11/22 History Insulin NPL/Insulin Lispro 74 unit SQ BID 10/23/22 12/11/22 History [humaLOG MIX 75-25 VIAL] Venlafaxine HCl [Effexor XR] 75 mg PO QAM 10/23/22 12/11/22 History Progesterone, Micronized 200 mg PO HS 10/30/22 12/11/22 History [Progesterone] Pantoprazole [Protonix] 40 mg PO QAM 12/10/22 12/11/22 History Allergies Allergy/AdvReac Type Severity Reaction Status Date / Time doxycycline Allergy Nausea & Verified 12/11/22 08:02 Vomiting erythromycin base Allergy Nausea & Verified 12/11/22 08:02 Vomiting Surgical - Exam Vital Signs Temp Pulse Resp BP Pulse Ox 97.4 F L 77 20 192/81 95 12/11/22 07:54 12/11/22 07:54 12/11/22 07:54 12/11/22 07:54 12/11/22 07:54 - General well developed, well nourished, no distress - Eyes PERRL - ENT normal pinna - Neck no masses - Respiratory normal expansion - Cardiovascular Rhythm: regular - Abdomen Abdomen: soft, non tender Assessment and Plan Plan: GERD, morbid obesity. We'll perform EGD.
--- NOTE | 2022-12-11 08:23 | P.OP ---
Date of Procedure: 12/11/22 Preoperative Diagnosis: GERD Morbid obesity Postoperative Diagnosis: Antral gastritis Procedure(s) Performed: EGD Anesthesia: MAC Surgeon: Ryder Galvez Pathology: other (Antrum) Condition: stable Disposition: PACU Description of Procedure: The patient's placed on the endoscopy table in the lateral position. She received IV sedation. The gastroscope placed oropharynx passed in the esophagus and stomach. Scope was then placed through the pylorus. The first and second portion of the duodenum appeared normal. The scope summer back the antrum this. Minimal inflamed. Biopsies performed. The scope was then retroflexed. The visualized appeared normal. The GE junction was at 40 cm the distal esophagus. Normal. The proximal esophagus appeared normal. Scope withdrawn for patient.
[2022-12-11 08:31] VITALS: RESP 16
[2022-12-11 08:42] VITALS: BP 108/53; PULSE 65
== END 2022-12-11 09:13 | disposition home or self-care (01) ==
LOC: ORWHC2ENDO 07:39
PROVIDERS: ATTEND Surgery
DX: K29.50 Unspecified chronic gastritis without bleeding (principal); K21.9 Gastro-esophageal reflux disease without esophagitis; E66.01 Morbid (severe) obesity due to excess calories; I48.91 Unspecified atrial fibrillation; I10 Essential (primary) hypertension; E11.9 Type 2 diabetes mellitus without complications; E78.5 Hyperlipidemia, unspecified; G47.33 Obstructive sleep apnea (adult) (pediatric); E07.9 Disorder of thyroid, unspecified; I47.1 Supraventricular tachycardia; I99.9 Unspecified disorder of circulatory system; K91.0 Vomiting following gastrointestinal surgery; Z68.43 Body mass index [BMI] 50.0-59.9, adult; Z86.718 Personal history of other venous thrombosis and embolism; Z98.891 History of uterine scar from previous surgery; Z98.890 Other specified postprocedural states; Z95.5 Presence of coronary angioplasty implant and graft; Z87.891 Personal history of nicotine dependence; Z79.82 Long term (current) use of aspirin; Z79.890 Hormone replacement therapy; Z79.899 Other long term (current) drug therapy; Z79.4 Long term (current) use of insulin; Z79.02 Long term (current) use of antithrombotics/antiplatelets; Z88.1 Allergy status to other antibiotic agents; Z99.89 Dependence on other enabling machines and devices
CPT/HCPCS: 81025; 88305; 43239; J2250; J2704; J2001

== ENCOUNTER → 2023-04-09 | Outpatient (CLI) | payer OTHER ==
[2023-04-09 22:02] LABS: Basophils # (A) 0.06 X 10*3/uL (0.00-0.10); Basophils % (A) 0.6 %; Eosinophils # (A) 0.21 X 10*3/uL (0.04-0.35); Eosinophils % (A) 2.2 %; HCT 39.4 % (37.2-46.3); HGB 12.1 d/dL (12.0-15.0); Lymphocytes # (A) 1.79 X 10*3/uL (0.90-5.00); MCHC 30.7 d/dL (32.0-37.0); MCV 84.7 FL (80.0-97.0); Mean Platelet Volume 10.8 FL (9.5-12.2); Monocytes # (A) 0.82 X 10*3/uL (0.20-1.00); Monocytes % (A) 8.7 %; NRBC Per 100 WBC 0 X 10*3/uL (0.00-0.01); Neutrophils # (A) 6.47 X 10*3/uL (1.80-7.70); Neutrophils % (A) 68.9 %; Platelet Count 281 X 10*3/uL (140-440); RBC 4.65 X 10*6/uL (4.10-5.20); RDW 17.3 % (11.5-14.5); WBC 9.41 X 10*3/uL (4.50-10.00)
== END | disposition home or self-care (01) ==
LOC: LABPAT 15:44
PROVIDERS: ATTEND Obstetrics & Gynecology
DX: Z01.812 Encounter for preprocedural laboratory examination (principal); N85.00 Endometrial hyperplasia, unspecified; N93.8 Other specified abnormal uterine and vaginal bleeding
CPT/HCPCS: 85025; 93005

== ENCOUNTER → 2023-04-15 | Outpatient (CLI) | payer OTHER ==
[2023-04-16 02:43] LABS: Blood Urea Nitrogen 18.1 mg/dL (9.0-27.0); Potassium 4.3 mmol/L (3.5-5.5)
== END | disposition home or self-care (01) ==
LOC: LABPAT 14:46
PROVIDERS: ATTEND Obstetrics & Gynecology
DX: Z01.812 Encounter for preprocedural laboratory examination (principal); N85.00 Endometrial hyperplasia, unspecified; E11.9 Type 2 diabetes mellitus without complications; E66.9 Obesity, unspecified
CPT/HCPCS: 82565; 84132; 84520

== ENCOUNTER → 2023-04-20 | Day surgery (SDC) | payer OTHER ==
--- NOTE | 2023-04-15 10:17 | P.HPIHPCON ---
History of Present Illness H&P Date: 04/15/23 Chief Complaint: Endometrial hyperplasia without atypia, post-menopausal ble eding 47 year old with a history of endometrial hyperplasia without atypia who presents for re-evaluation of the endometrium after 6 months of treatment with cyclic prometrium. The patient has not had any continued bleeding since using the prometrium. Consent for Procedure: I have explained the operation/procedure to the patient, including the risks, benefits, side effects, alternative therapies (including not receiving the proposed treatment or service), the likelihood of the patient achieving his/her goals, and potential recuperation problems for the procedure/sedation/analgesia, as well as any blood products, if indicated. I also explained to the patient the risks, benefits and side effects of the alternatives, as well as the risks related to not receiving the proposed procedure, care, treatment, or services. Past Medical History Past Medical History: Atrial Fibrillation, Blood Disorder, Diabetes Mellitus, Deep Vein Thrombosis (DVT), GERD/Reflux, Hyperlipidemia, Hypertension, Sleep Apnea/CPAP/BIPAP, Supraventricular Tachycardia (SVT), Thyroid Disorder, Vascular Disorder Additional Past Medical History / Comment(s): EGD for bariatric surgery. Frozen shoulder L side/dissipating, DALE/no cpap used, past hiatal hernia, hx anemia with iron infusions October 2022, DVT left leg after aorto/bypass surg. per pt., hx A-fib over 1 year ago related to sleep apnea per pt., intermittent blood in urine-followed by urologist. History of Any Multi-Drug Resistant Organisms: None Reported Past Surgical History: Breast Surgery, Section, Ear Surgery, Heart Catheterization, Hernia Repair, Orthopedic Surgery Additional Past Surgical History / Comment(s): Aortic Abdominal Bypass-12/2015, Left Carpal Tunnel, Rt Breast biopsy, stents maritza legs, incisional hernia repair 09-14-2018, bilateral myringotomy/tubes, egd, colonoscopy. Past Anesthesia/Blood Transfusion Reactions: Family History of Problems w/ Anesthesia, Postoperative Nausea & Vomiting (PONV) Additional Past Anesthesia/Blood Transfusion Reaction / Comment(s): Severe PONV. States her brother stopped breathing/heart stopped at the dentist, R/T ALLERGY TO RX. Pt has never had a blood transfusion. Smoking Status: Former smoker - Past Family History Mother Family Medical History: Cancer Additional Family Medical History / Comment(s): Kidney Brother(s) Family Medical History: Cancer Additional Family Medical History / Comment(s): Esophageal Medications and Allergies Home Medications Medication Instructions Recorded Confirmed Type Aspirin EC [Ecotrin Low Dose] 81 mg PO QAM 09/24/15 12/11/22 History Levothyroxine Sodium [Synthroid] 175 mcg PO QAM 09/24/15 12/11/22 History Atorvastatin [Lipitor] 40 mg PO QAM 01/16/17 12/11/22 History Clopidogrel [Plavix] 75 tab PO QAM 01/16/17 12/11/22 History hydroCHLOROthiazide 25 mg PO QAM 01/16/17 12/11/22 History Metoprolol Succinate [Toprol XL] 50 mg PO BID 11/12/17 12/11/22 History lisinopriL [Zestril] 5 mg PO QAM 11/12/17 12/11/22 History Insulin Glulisine [Apidra] 1 - 6 units SQ ACHS 10/23/22 12/11/22 History Insulin NPL/Insulin Lispro 74 unit SQ BID 10/23/22 12/11/22 History [humaLOG MIX 75-25 VIAL] Venlafaxine HCl [Effexor XR] 75 mg PO QAM 10/23/22 12/11/22 History Progesterone, Micronized 200 mg PO HS 10/30/22 12/11/22 History [Progesterone] Pantoprazole [Protonix] 40 mg PO QAM 12/10/22 12/11/22 History Allergies Allergy/AdvReac Type Severity Reaction Status Date / Time doxycycline Allergy Nausea & Verified 12/11/22 08:02 Vomiting erythromycin base Allergy Nausea & Verified 12/11/22 08:02 Vomiting Surgical - Exam Focused physical exam is performed. This is a healthy-appearing female in no edmond arent distress. Breathing is non-labored. Abdomen is soft, non-tender. Extremities are non-tender and non-edematous. Assessment and Plan Assessment: 47 year old here for endometrial sampling with hysteroscopy D&C after a history of endometrial hyperplasia without atypia Plan: Risks, benefits, and alternatives to surgery were reviewed with the patient including risk of bleeding, infection, and uterine perforation. The patient understands these risks and desires to proceed with surgery as scheduled. Time with Patient: Less than 30
[~2023-04-20] MED LIST changes: +DEXAMETHASONE SOD PHOSPHATE 4 MG/ML 1 ML VIAL IV ONE; +HYDROmorphone 0.5 MG/0.5 ML SYRINGE IVP PRN; +INSULIN ASPART (NovoLOG) 100 UNIT/ML VIAL SQ ONE; +KETOROLAC 15 MG/ML 1 ML VIAL ONE; -LACTATED RINGERS 1,000 ML IV SCH; +LIDOCAINE 1% INJ 10MG/ML (20 ML MDV) ONE; +MIDAZOLAM 2 MG/2 ML VIAL IVP ONE; +ONDANSETRON 4 MG/2 ML VIAL IVP ONE; +PROPOFOL 10 MG/ML 20 ML VIAL IV ONE; +Pre Op ABX Message 1 EACH MISC MISCELLANE ONE; +SCOPOLAMINE 1 MG/72 HR PATCH TRANSDERM ONE; +SODIUM CHLORIDE 0.9% 1,000 ML IV ONE; +SUCCINYLCHOLINE CHLORIDE 200 MG/10 ML VIAL IV ONE; +droPERidol 5 MG/2 ML VIAL IVP ONE; +ePHEDrine 50 MG/ML 1 ML VIAL ONE; +fentaNYL (PF) 50 MCG/ML 2 ML AMP ONE
[2023-04-20] MEDS: LACTATED RINGERS 1,000 ML IV SCH ×2 (11:01→11:14)
[2023-04-20 11:13] LABS: Glucose,Whole Blood 366 mg/dL (70-110)
[2023-04-20] MEDS: SODIUM CHLORIDE 0.9% 100 ML IV ONE (11:48)
[2023-04-20 11:54] LABS: Glucose,Whole Blood 338 mg/dL (70-110)
--- NOTE | 2023-04-20 12:29 | P.OP ---
Date of Procedure: 04/20/23 Preoperative Diagnosis: 1. Endometrial hyperplasia without atypia 2. Postmenopausal bleeding Postoperative Diagnosis: Same Procedure(s) Performed: Dilation and curettage Implants: None Anesthesia: BRIANAA Surgeon: Amanda Church Estimated Blood Loss (ml): 10 IV fluids (ml): 200 Urine output (ml): 0 Pathology: other (endometrial curettings) Condition: stable Disposition: same day Indications for Procedure: 47 year old here for endometrial sampling with hysteroscopy D&C after a history of endometrial hyperplasia without atypia. Risks, benefits, and alternatives to surgery were reviewed with the patient including risk of bleeding, infection, and uterine perforation. The patient understands these risks and desires to proceed with surgery as scheduled. Operative Findings: Moderate amount of endometrial curettings obtained. Description of Procedure: Patient is brought to the operating suite and placed in the dorsal lithotomy position. The cervix perineum and lower abdomen are prepped and draped in the usual sterile fashion. Examination under anesthesia reveals an ateverted uterus. Adnexa are negative bilaterally. The anterior lip of the cervix is grasped with a double toothed tenaculum after the weighted speculum is placed into the vagina. The uterus sounds to a depth of 8 cm. The Hanks dilators are placed and the cervix was dilated to 18 mm. A medium sharp curette is used and tissue is thoroughly evacuated. All sponge needle and instrument counts are correct. Instrumentation is removed from the vagina and the patient is brought to the recovery room in stable condition. Toradol is given prior to leaving the operative suite. Patient will follow up with me in the office in 2 weeks. Verbal and written instructions are provided.
[2023-04-20 12:54] VITALS: TEMP 97
[2023-04-20 12:56] LABS: Glucose,Whole Blood 344 mg/dL (70-110)
[2023-04-20 13:12] VITALS: RESP 16
[2023-04-20 13:57] LABS: Glucose,Whole Blood 226 mg/dL (70-110)
[2023-04-20 14:07] VITALS: BP 121/61; PULSE 73
== END | disposition home or self-care (01) ==
LOC: OR 10:36
PROVIDERS: ATTEND Obstetrics & Gynecology
DX: N72 Inflammatory disease of cervix uteri (principal); N85.00 Endometrial hyperplasia, unspecified; E11.9 Type 2 diabetes mellitus without complications; I48.91 Unspecified atrial fibrillation; K21.9 Gastro-esophageal reflux disease without esophagitis; E78.5 Hyperlipidemia, unspecified; I10 Essential (primary) hypertension; G47.33 Obstructive sleep apnea (adult) (pediatric); I47.10 Supraventricular tachycardia, unspecified; E07.9 Disorder of thyroid, unspecified; Z87.891 Personal history of nicotine dependence; Z79.02 Long term (current) use of antithrombotics/antiplatelets; Z79.899 Other long term (current) drug therapy; Z79.4 Long term (current) use of insulin; Z79.82 Long term (current) use of aspirin; Z79.890 Hormone replacement therapy
CPT/HCPCS: 58558; 88305; J2250; J0330; J2405; J2001; J3010; J1885; J2704; J1170

== ENCOUNTER 2023-09-21 08:50 | Day surgery (SDC) | payer OTHER ==
[2023-09-15 15:56] VITALS: BMI 49.4
--- NOTE | 2023-09-17 15:38 | P.HPIHPCON ---
History of Present Illness H&P Date: 09/17/23 Chief Complaint: Endometrial hyperplasia Ms. Hercules is a 48 year old who presents for endometrial sampling for a history of endometrial hyperplasia without atypia. She has been taking Prometrium to treat the hyperplasia. She has menses every 2-4 weeks which are at times heavy with blood clots. Consent for Procedure: I have explained the operation/procedure to the patient, including the risks, benefits, side effects, alternative therapies (including not receiving the proposed treatment or service), the likelihood of the patient achieving his/her goals, and potential recuperation problems for the procedure/sedation/analgesia, as well as any blood products, if indicated. I also explained to the patient the risks, benefits and side effects of the alternatives, as well as the risks related to not receiving the proposed procedure, care, treatment, or services. Past Medical History Past Medical History: Blood Disorder, Diabetes Mellitus, Deep Vein Thrombosis (DVT), GERD/Reflux, Hyperlipidemia, Hypertension, Sleep Apnea/CPAP/BIPAP, Supraventricular Tachycardia (SVT), Thyroid Disorder, Vascular Disorder Additional Past Medical History / Comment(s): IDDM, , DALE/no cpap used, hx anemia with iron infusions October 2022, DVT left leg after aorto/bypass surg. per pt., PVD, intermittent blood in urine-followed by urologist. History of Any Multi-Drug Resistant Organisms: None Reported Past Surgical History: Breast Surgery, Section, Ear Surgery, Heart Catheterization, Hernia Repair, Orthopedic Surgery Additional Past Surgical History / Comment(s): Aortic Abdominal Bypass-12/2015, Left Carpal Tunnel, Rt Breast biopsy, stents maritza legs, incisional hernia repair 09-14-2018, bilateral myringotomy/tubes, egds, colonoscopy. HIATAL HERNIA REPAIR Past Anesthesia/Blood Transfusion Reactions: Family History of Problems w/ Anesthesia, Postoperative Nausea & Vomiting (PONV) Additional Past Anesthesia/Blood Transfusion Reaction / Comment(s): Severe PONV. States her brother stopped breathing/heart stopped at the dentist, R/T A LLERGY TO RX. Pt has never had a blood transfusion. Smoking Status: Former smoker - Past Family History Mother Family Medical History: Cancer Additional Family Medical History / Comment(s): Kidney Brother(s) Family Medical History: Cancer Additional Family Medical History / Comment(s): Esophageal Medications and Allergies Home Medications Medication Instructions Recorded Confirmed Type Aspirin EC [Ecotrin Low Dose] 81 mg PO QAM 09/24/15 09/15/23 History Levothyroxine Sodium [Synthroid] 175 mcg PO QAM 09/24/15 09/15/23 History Atorvastatin [Lipitor] 40 mg PO QAM 01/16/17 09/15/23 History Clopidogrel [Plavix] 75 tab PO QAM 01/16/17 09/15/23 History hydroCHLOROthiazide 25 mg PO QAM 01/16/17 09/15/23 History Metoprolol Succinate [Toprol XL] 50 mg PO BID 11/12/17 09/15/23 History lisinopriL [Zestril] 5 mg PO QAM 11/12/17 09/15/23 History Insulin Glulisine [Apidra] 1 - 6 units SQ ACHS 10/23/22 09/15/23 History Insulin NPL/Insulin Lispro 74 unit SQ BID 10/23/22 09/15/23 History [humaLOG MIX 75-25 VIAL] Venlafaxine HCl [Effexor XR] 75 mg PO QAM 10/23/22 09/15/23 History Progesterone, Micronized 200 mg PO DIRECTED 10/30/22 09/15/23 History [Progesterone] Pantoprazole [Protonix] 40 mg PO QAM 12/10/22 09/15/23 History Empagliflozin [Jardiance] 10 mg PO DAILY 09/15/23 09/15/23 History Gabapentin 300 mg PO HS 09/15/23 09/15/23 History Allergies Allergy/AdvReac Type Severity Reaction Status Date / Time doxycycline Allergy Nausea & Verified 09/15/23 15:43 Vomiting erythromycin base Allergy Nausea & Verified 09/15/23 15:43 Vomiting Surgical - Exam Focused physical exam is performed. This is a healthy-appearing female in no apparent distress. Breathing is non-labored. Abdomen is soft and non-tender. Extremities are non-tender and non-edematous. Assessment and Plan Assessment: 48 year old with history of endometrial hyperplasia without atypia presenting for endometrial sampling Plan: Risks, benefits, and alternatives to hysteroscopy D&C with Myosure discussed with the patient including risk of bleeding, infection, uterine perforation, and damage to surrounding structures including bladder/bowel/ureters discussed with the patient. She understands these risks and desires to proceed. all questions answered.
[~2023-09-21 08:50] MED LIST changes: -DEXAMETHASONE SOD PHOSPHATE 4 MG/ML 1 ML VIAL IV ONE; -INSULIN ASPART (NovoLOG) 100 UNIT/ML VIAL SQ ONE; -KETOROLAC 15 MG/ML 1 ML VIAL ONE; -LIDOCAINE 1% INJ 10MG/ML (20 ML MDV) ONE; -MIDAZOLAM 2 MG/2 ML VIAL IVP ONE; -ONDANSETRON 4 MG/2 ML VIAL IVP ONE; -PROPOFOL 10 MG/ML 20 ML VIAL IV ONE; -SCOPOLAMINE 1 MG/72 HR PATCH TRANSDERM ONE; -SODIUM CHLORIDE 0.9% 1,000 ML IV ONE; -SUCCINYLCHOLINE CHLORIDE 200 MG/10 ML VIAL IV ONE; -droPERidol 5 MG/2 ML VIAL IVP ONE; -ePHEDrine 50 MG/ML 1 ML VIAL ONE; -fentaNYL (PF) 50 MCG/ML 2 ML AMP ONE
[2023-09-21] MEDS: LACTATED RINGERS 1,000 ML IV SCH (09:18)
[2023-09-21 09:42] LABS: Glucose,Whole Blood 332 mg/dL (70-110)
[2023-09-21] MEDS: DEXAMETHASONE SOD PHOSPHATE 4 MG/ML 1 ML VIAL IV ONE (09:42)
[2023-09-21 09:44] LABS: Basophils # (A) 0.1 k/uL (0-0.2); Basophils % (A) 1 %; Eosinophils # (A) 0.2 k/uL (0-0.7); Eosinophils % (A) 2 %; HGB 11.7 gm/dL (11.4-16.0); Hypochromasia Marked; Lymphocytes # (A) 1.3 k/uL (1.0-4.8); Lymphocytes % (A) 14 %; MCH 25.1 pg (25.0-35.0); MCHC 30.8 g/dL (31.0-37.0); MCV 81.6 fL (80.0-100.0); Mean Platelet Volume 8.5; Monocytes # (A) 0.5 k/uL (0-1.0); Monocytes % (A) 6 %; Neutrophils # (A) 6.7 k/uL (1.3-7.7); Neutrophils % (A) 76 %; Platelet Count 270 k/uL (150-450); RBC 4.66 m/uL (3.80-5.40); RDW 15.1 % (11.5-15.5); WBC 8.9 k/uL (3.8-10.6)
[2023-09-21] MEDS: METOCLOPRAMIDE 5 MG/ML 2 ML VIAL IVP PRN (09:44)
[2023-09-21] MEDS: ONDANSETRON 4 MG/2 ML VIAL ONE (09:45)
[2023-09-21] MEDS: diphenhydrAMINE 50 MG/ML 1 ML VIAL IVP ONE (09:46)
[2023-09-21] MEDS: FAMOTIDINE 20 MG/2 ML VIAL IVP ONE (09:47)
[2023-09-21 09:53] LABS: African American GFR (CKD) >90 (>60 ml/min/1.73 sqM); Anion Gap 11 mmol/L; Blood Urea Nitrogen 26 mg/dL (7-17); Calcium 9.2 mg/dL (8.4-10.2); Carbon Dioxide 22 mmol/L (22-30); Chloride 106 mmol/L (98-107); Glucose 324 mg/dL (74-99); Non-African American GFR(CKD) >90 (>60 ml/min/1.73 sqM); Potassium 4.1 mmol/L (3.5-5.1); Sodium 139 mmol/L (137-145)
[2023-09-21 10:01] VITALS: RESP 16
[2023-09-21] MEDS: INSULIN ASPART (NovoLOG) 100 UNIT/ML VIAL SQ ONE ×2 (10:01→11:26)
[2023-09-21] MEDS ORDERED: LIDOCAINE 1% INJ 10MG/ML (20 ML MDV) ONE (10:27)
[2023-09-21] MEDS ORDERED: MIDAZOLAM 2 MG/2 ML VIAL ONE (10:27)
[2023-09-21] MEDS ORDERED: PROPOFOL 10 MG/ML 20 ML VIAL IV ONE (10:27)
[2023-09-21] MEDS ORDERED: KETOROLAC 30 MG/ML 1 ML VIAL ONE (10:27)
[2023-09-21] MEDS: LACTATED RINGERS 1,000 ML IV ONE (10:27)
[2023-09-21] MEDS ORDERED: fentaNYL (PF) 50 MCG/ML 2 ML AMP ONE (10:27)
[2023-09-21] MEDS ORDERED: SUCCINYLCHOLINE CHLORIDE 200 MG/10 ML VIAL IV ONE (10:27)
--- NOTE | 2023-09-21 10:59 | P.OP ---
Date of Procedure: 09/21/23 Preoperative Diagnosis: 1. Endometrial hyperplasia without atypia Postoperative Diagnosis: Same Procedure(s) Performed: Hysteroscopy Dilation and Curettage with Myosure device Implants: none Anesthesia: BRIANAA Surgeon: Amanda Church Estimated Blood Loss (ml): 1 IV fluids (ml): 700 Urine output (ml): 250 Pathology: other (endometrial curettings) Condition: stable Disposition: same day Indications for Procedure: Ms. Hercules is a 48 year old female with a history of endometrial hyperplasia without atypia for which she has been treated with Progesterone therapy. She presents today for resampling of the endometrium after treatment. Risks, benefits, and alternatives to hysteroscopy D&C are discussed with the patient including risk of bleeding, infection, uterine perforation, and damage to surrounding structures. The patient understands these risks and desires to proceed with surgery as scheduled. Operative Findings: The uterus is anteverted and sounds to 9 centimeters. Normal-appearing proliferative endometrium without polyps or fibroids. Bilateral ostia are visualized and appear within normal limits. Description of Procedure: Patient is brought to the operating suite and placed in the dorsal lithotomy position. The cervix perineum and lower abdomen are prepped and draped in the usual sterile fashion. Examination under anesthesia reveals an anteverted uterus. Adnexa are negative bilaterally. The bladder is drained for approximately 250 mL of clear yellow urine. The anterior lip of the cervix is grasped with a double toothed tenaculum after the weighted speculum is placed into the vagina. The uterus sounds to a depth of 9 cm in the anteverted position. The Hanks dilators are placed and the cervix was dilated to accomoda te the Myosure hysteroscope. The hysteroscope was then introduced and with saline infusion the cavity is distended. Shaggy proliferative type endometrium is noted. The Myosure Reach instrument is introduced through the hysteroscopy and a global sampling of the endometrium is performed under direct visualization. These endometrial curettings are sent to pathology. All sponge needle and instrument counts are correct. Instrumentation is removed from the vagina and the patient is brought to the recovery room in stable condition. Fluid deficit is 200 mL. Toradol is given prior to leaving the operative suite. Patient will follow up with me in the office in 2 weeks. She plans to use over the counter tylenol as needed for pain. Verbal and written instructions are provided.
[2023-09-21 11:09] VITALS: TEMP 98
[2023-09-21 11:17] LABS: Glucose,Whole Blood 302 mg/dL (70-110)
[2023-09-21] MEDS ORDERED: INSULIN ASPART (NovoLOG) 100 UNIT/ML VIAL SQ ONE (11:20)
[2023-09-21 12:16] LABS: Glucose,Whole Blood 290 mg/dL (70-110)
[2023-09-21 12:19] VITALS: BP 142/69; PULSE 76
== END 2023-09-21 12:15 | disposition home or self-care (01) ==
LOC: OR 08:50
PROVIDERS: ATTEND Obstetrics & Gynecology
DX: N85.00 Endometrial hyperplasia, unspecified (principal); I10 Essential (primary) hypertension; E78.5 Hyperlipidemia, unspecified; K21.9 Gastro-esophageal reflux disease without esophagitis; E11.9 Type 2 diabetes mellitus without complications; Z86.73 Personal history of transient ischemic attack (TIA), and cerebral infarction without residual deficits; E07.9 Disorder of thyroid, unspecified; Z98.890 Other specified postprocedural states; Z98.891 History of uterine scar from previous surgery; Z80.51 Family history of malignant neoplasm of kidney; Z79.82 Long term (current) use of aspirin; Z79.1 Long term (current) use of non-steroidal anti-inflammatories (NSAID); Z88.1 Allergy status to other antibiotic agents
CPT/HCPCS: 81025; 88305; 80048; 85025; 58558; J2250; J0330; J1200; J1100; J2765; J2405; J2001; J3010; J1885; J3490; J2704